=== PATIENT | female | born 1935 | race Caucasian/White ===

== ENCOUNTER 2017-04-10 15:27 | Inpatient (IN) ==
--- NOTE | 2017-04-10 15:48 | Emergency Department Note ---
Disposition Clinical Impression: Thrombocytopenia, Elevated troponin, Hypokalemia, Hyperbilirubinemia Disposition: Admitted As Inpatient Condition: Fair Time of Disposition: 17:36 General Adult HPI - General Chief complaint: ED Recheck/Abnormal Lab/Rx Stated complaint: Low platelets Time Seen by Provider: 04/10/17 15:32 Source: EMS Mode of arrival: EMS Limitations: altered mental status Nursing Notes Reviewed: Yes Vital Signs Reviewed: Yes - History of Present Illness HPI Narrative: 81-year-old female with Alzheimer's presenting from [facility] via EMS for chief complaint of thrombocytopenia. Patient has significant past medical history of breast cancer 10 years ago. She has never had thrombocytopenia in the past. Son is the power of defense attorney and I spoke with him at length. Patient is a DNRCC. He would not like any invasive therapies although he would like the patient to be transfused for thrombocytopenia and admitted for possible noninvasive workup. Patient denies any symptoms at this time. She states she is in no pain. Patient is unable to provide any history. The majority of the history is provided by the son and EMS documentation. Pain Scale: 0 - Related Data Home Medications Medication Instructions Recorded Confirmed Anastrozole [Arimidex] 1 mg PO DAILY 09/16/15 04/10/17 Atorvastatin [Lipitor] 40 mg PO HS 09/16/15 04/10/17 Clopidogrel [Plavix] 75 mg PO DAILY 09/16/15 04/10/17 Duloxetine HCl [Cymbalta] 60 mg PO DAILY 09/16/15 04/10/17 Furosemide [Lasix] 20 mg PO DAILY 09/16/15 04/10/17 Isosorbide MONOnitrate (24 HR) 30 mg PO DAILY 09/16/15 04/10/17 [Imdur] Nitroglycerin [Nitrostat] 0.4 mg SL Q5M PRN 09/16/15 04/10/17 Ranolazine [Ranexa] 500 mg PO BID 09/16/15 04/10/17 Chloraseptic [place] [Chloraseptic] 1 spray MM Q1H PRN 02/26/17 04/10/17 Cholecalciferol (Vitamin D3) 1,000 unit PO DAILY 02/26/17 04/10/17 [Vitamin D] LORazepam [Ativan] 0.5 mg PO HS 02/26/17 04/10/17 Magnesium Hydroxide [Milk of 30 ml PO DAILY PRN 02/26/17 04/10/17 Magnesia] Metoprolol Succinate 25 mg PO DAILY 02/26/17 04/10/17 Tramadol HCl [Ultram] 50 mg PO Q6H PRN 02/26/17 04/10/17 Acetaminophen [Non-Aspirin] 650 mg PO Q6H PRN 03/13/17 04/10/17 Calcium Carbonate [Calcium] 600 mg PO DAILY 04/10/17 04/10/17 Docusate [Colace] 100 mg PO BID 04/10/17 04/10/17 Donepezil HCl [Aricept] 5 mg PO HS 04/10/17 04/10/17 Potassium Chloride [K-Tab ER] 20 meq PO BID 04/10/17 04/10/17 Allergies Allergy/AdvReac Type Severity Reaction Status Date / Time aspirin [ASA] Allergy Swelling Verified 03/13/17 15:48 of Lip/Tongue/Throat codeine Allergy Anaphylaxis Verified 03/13/17 15:48 iodine Allergy Anaphylaxis Verified 03/13/17 15:48 Limitations: ROS unobtainable due to patients medical condition Past Medical History - Past Medical History Attestation: Yes The following information was validated with the patient. Medical history: Reports: cancer, coronary artery disease, myocardial infarction Surgical history: Reports: other Psychiatric history: Reports: no psych history - Social History Smoking Status: Never smoker Smokeless Tobacco Status: No Alcohol use: Reports: none Drug use: Reports: none Physical Exam - General Limitations: altered mental status General appearance: alert, in no apparent distress - Head Head exam: atraumatic, normocephalic, normal inspection - Eye Eye exam: Present: normal appearance. Absent: scleral icterus, conjunctival injection - Chest Chest inspection: Present: normal inspection, symmetric chest wall rise. Absent : tenderness, rash - Respiratory Respiratory exam: Present: normal lung sounds bilaterally. Absent: respiratory distress, wheezes - Cardiovascular Cardiovascular exam: Present: normal rhythm, tachycardia - Abdominal Exam Abdominal exam: Present: soft, Non-Tender. Absent: distention, guarding, rebound - Extremities Exam Extremities exam: Present: full ROM, other (Petechiae noted on the bilateral lower extremities. Mostly on the medial surface of the right knee.) - Neurological Exam Neurological exam: Present: alert (to self only) - Skin Skin exam: Present: warm. Absent: cyanosis Course Course Narrative: 81-year-old female presenting to the emergency Department chief complaint of thrombocytopenia. After an extensive discussion with the patient's power of defense attorney they have decided to perform basic lab workup including CBC, CMP, PTINR , PTT. depending on the platelet levels be well transfuse as needed. Patient is alert only to self. Son who is the power of defense attorney is at bedside. Patient is slightly tachycardic in the low 100s but vital signs otherwise are stable. Disposition most likely admission but pending results. - Reevaluation(s) Reevaluation #1: Platelets at 14 at this time. We will transfuse one packet of platelets. I spoke with the freezer person on-call doctor Shimon who agrees to see the patient while she is admitted. He believes the best thing for the patient is to be transfused and admitted for further workup. He agrees not to completely any invasive workup including bone marrow biopsy. I also spoke with the palliative care team and Dr. Wells who agrees to see the patient tomorrow as well for possible palliative care. Patient also has an elevated troponin of 0.14. Due to her platelet level we are unable to provide any anticoagulation or aspirin at this time. Patient denies any chest pain. Potassium is also decreased at 2.9. We will provide the patient with oral potassium at this time. We will plan to admit the patient at this time for further workup of her thrombocytopenia. I spoke with the accepting hospitalist Dr. Moses who agrees to see the patient on the floor. Patient is still alert only to self and still tachycardic in the low 100s in the room. Other vital signs are within normal limits. We will admit the patient at this time. Time: 17:34 Vital Signs Temperature 98.2 F 04/10/17 15:33 Pulse Rate 104 04/10/17 15:33 Respiratory Rate 16 04/10/17 15:33 Blood Pressure 150/88 04/10/17 15:33 O2 Sat by Pulse Oximetry 93 04/10/17 15:33 Temperature 98.2 F 04/10/17 15:33 Pulse Rate 103 04/10/17 17:35 Respiratory Rate 16 04/10/17 17:35 Blood Pressure 138/91 04/10/17 17:35 O2 Sat by Pulse Oximetry 91 12/05/17 17:35 Oxygen Delivery Oxygen Delivery Room Air Medical Decision Making - Lab Data Lab results reviewed: Yes I reviewed the patient's lab results. Result diagrams: 04/10/17 16:03 04/10/17 16:03 Lab Results 04/10/17 04/10/17 04/10/17 Range/Units 16:03 16:03 16:03 WBC 10.7 (4.3-11.1) K/mcL RBC 3.59 L (3.82-4.97) M/mcL Hgb 12.5 (11.5-15.4) g/dL Hct 35.0 L (35.3-44.9) % MCV 97.5 (83.0-100.0) fL MCH 34.8 H (28.0-33.3) pg MCHC 35.7 H (31.6-35.5) g/dL RDW 14.2 (11.5-14.5) % Plt Count 14 L* (140-400) K/mcL MPV 13.0 H (9.4-12.4) fL Immature Gran % 4.5 H (0-4) % Seg Neutrophils % 82.4 % Lymphocytes % 8.0 % Monocytes % 4.7 % Eosinophils % 0.1 % Basophils % 0.3 % Neutrophils # 8.8 (1.6-8.9) K/mcL Lymphocytes # 0.9 (0.6-4.6) K/mcL Monocytes # 0.5 (0.0-1.3) K/mcL Eosinophils # 0.0 (0.0-0.6) K/mcL Basophils # 0.0 (0.0-0.2) K/mcL Nucleated RBCs/100 WBC 1.0 H (0) /100 WBC Immature Plt Fraction 12.7 H (1.1-6.1) % PT 12.3 H (9.4-12.1) Seconds INR 1.1 APTT 23.2 L (26.0-36.0) Seconds Sodium 142 (136-145) mEq/L Potassium 2.9 L (3.5-4.5) mEq/L Chloride 97 L (98-109) mEq/L Carbon Dioxide 36 H (19-29) mEq/L BUN 18 (7-20) mg/dL Creatinine 0.79 (0.57-1.11) mg/dL Est GFR ( Amer) > 60 (> 60) Est GFR (Non-Af Amer) > 60 (> 60) BUN/Creatinine Ratio 23 (6-26) Glucose 200 H (70-99) mg/dL Calculated Osmolality 302 H (280-300) Calcium 9.2 (8.6-10.8) mg/dL Total Bilirubin 1.4 H (0.2-1.2) mg/dL AST 90 H (5-34) Units/L ALT 69 H (0-55) Units/L Alkaline Phosphatase 124 (38-126) Units/L Troponin I (0-0.03) ng/mL Serum Total Protein 5.3 L (6.0-8.3) g/dL Albumin 2.8 L (3.5-5.0) g/dL Globulin 2.5 (2.4-3.5) g/dL Albumin/Globulin Ratio 1.1 (1.1-2.2) 04/10/17 Range/Units 16:03 WBC (4.3-11.1) K/mcL RBC (3.82-4.97) M/mcL Hgb (11.5-15.4) g/dL Hct (35.3-44.9) % MCV (83.0-100.0) fL MCH (28.0-33.3) pg MCHC (31.6-35.5) g/dL RDW (11.5-14.5) % Plt Count (140-400) K/mcL MPV (9.4-12.4) fL Immature Gran % (0-4) % Seg Neutrophils % % Lymphocytes % % Monocytes % % Eosinophils % % Basophils % % Neutrophils # (1.6-8.9) K/mcL Lymphocytes # (0.6-4.6) K/mcL Monocytes # (0.0-1.3) K/mcL Eosinophils # (0.0-0.6) K/mcL Basophils # (0.0-0.2) K/mcL Nucleated RBCs/100 WBC (0) /100 WBC Immature Plt Fraction (1.1-6.1) % PT (9.4-12.1) Seconds INR APTT (26.0-36.0) Seconds Sodium (136-145) mEq/L Potassium (3.5-4.5) mEq/L Chloride (98-109) mEq/L Carbon Dioxide (19-29) mEq/L BUN (7-20) mg/dL Creatinine (0.57-1.11) mg/dL Est GFR ( Amer) (> 60) Est GFR (Non-Af Amer) (> 60) BUN/Creatinine Ratio (6-26) Glucose (70-99) mg/dL Calculated Osmolality (280-300) Calcium (8.6-10.8) mg/dL Total Bilirubin (0.2-1.2) mg/dL AST (5-34) Units/L ALT (0-55) Units/L Alkaline Phosphatase (38-126) Units/L Troponin I 0.17 H* (0-0.03) ng/mL Serum Total Protein (6.0-8.3) g/dL Albumin (3.5-5.0) g/dL Globulin (2.4-3.5) g/dL Albumin/Globulin Ratio (1.1-2.2) Attestation Statement - Attestation Attestation: I examined this patient and my medical decision-making was reviewed with the Resident Physician, Dr. Saunders. I agree with the documented findings, disposition and treatment plan as described except to the extent set forth below. Patient is a 81-year-old elderly white female with a history of advanced dementia who resides in an extended care facility and is currently on hospice and DNR CC only. Son and [id number] are with the patient at bedside and she was sent here due to abnormal labs from the extended care facility showing a platelet count of 14 as well as new onset of rash located in patchy areas on the lower extremities. She has had no change in her mental status she is resting comfortably and when awakened quite pleasant and smiling and interactive. She does not have a fever, the daughter does mention that over the weekend she was having some shortness of breath and cough and they did give her an IM injection of antibiotics and that she has been doing better since that time. Patient has a significant cardiac history as well and remote CABG. The family restates that they do not want anything invasive or any extreme measures taken for her as she is Comfort Care only. Her appetite has been decreasing and she currently is on thickened liquids for intake. I agree with patient's physical exam findings as documented. Vital signs are stable. We did obtain blood work for a lab evaluation and her platelet count has continued to drop from 20-14. We did speak with hem/onc by phone in regards to the patient's lab results as well as her current CODE STATUS. They recommended that we bring her into a hospice bed and they will be happy to consult on her and we will not proceed with any invasive testing. They recommended we go ahead with the initial transfusion and they will further evaluate possible etiology as well as prevention of ongoing problems cytopenia. Family agrees with this plan. We did speak with hospitalist team as well and they will consult on the patient. Patient will be admitted for further evaluation and management.
[2017-04-10 16:16] LABS: Basophils % 0.3 %; Hemoglobin 12.5 g/dL (11.5-15.4); Mean Corpuscular Volume 97.5 fL (83.0-100.0)
[2017-04-10 16:18] LABS: Eosinophils % 0.1 %; Immature Granulocytes % 4.5 % (0-4); Immature Platelets 12.7 % (1.1-6.1); Lymphocytes # 0.9 K/mcL (0.6-4.6); Mean Corpuscular HGB Conc 35.7 g/dL (31.6-35.5); Mean Corpuscular Hemoglobin 34.8 pg (28.0-33.3); Monocytes # 0.5 K/mcL (0.0-1.3); Monocytes % 4.7 %; Neutrophils # 8.8 K/mcL (1.6-8.9); Red Blood Count 3.59 M/mcL (3.82-4.97); Red Cell Distribution Width 14.2 % (11.5-14.5); Segmented Neutrophils % 82.4 %
[2017-04-10 16:21] LABS: INR 1.1; Prothrombin Time 12.3 Seconds (9.4-12.1)
[2017-04-10 16:23] LABS: Activated Partial Thrombo Time 23.2 Seconds (26.0-36.0)
[2017-04-10 16:36] LABS: Alanine Aminotransferase 69 Units/L (0-55); Albumin 2.8 g/dL (3.5-5.0); Albumin/Globulin Ratio 1.1 (1.1-2.2); Alkaline Phosphatase 124 Units/L (38-126); Aspartate Amino Transferase 90 Units/L (5-34); BUN/Creatinine Ratio 23 (6-26); Bilirubin,Total 1.4 mg/dL (0.2-1.2); Blood Urea Nitrogen 18 mg/dL (7-20); Calcium 9.2 mg/dL (8.6-10.8); Carbon Dioxide 36 mEq/L (19-29); Chloride 97 mEq/L (98-109); Globulin 2.5 g/dL (2.4-3.5); Glucose 200 mg/dL (70-99); Osmolality,Calculated 302 (280-300); Potassium 2.9 mEq/L (3.5-4.5); Sodium 142 mEq/L (136-145); Total Protein 5.3 g/dL (6.0-8.3); eGFR For African Americans > 60 (> 60); eGFR For Non-African Americans > 60 (> 60)
[2017-04-10 16:46] LABS: Platelet Count 14 K/mcL (140-400)
[2017-04-10] MEDS ORDERED: Potassium Chloride Elixir 20 MEQ/15 ML UDC PO ONE (16:46)
[2017-04-10] MEDS ORDERED: *HR* LORazepam 2 MG/ML VIAL IVP ONE (20:35)
[2017-04-10] MEDS ORDERED: 0.9 % Sodium Chloride 250 ML ONE (20:43)
[2017-04-11] MEDS ORDERED: Acetaminophen 325 MG TABLET PO PRN (01:37)
[2017-04-11] MEDS ORDERED: Ondansetron 4 MG/2 ML VIAL IVP PRN (01:37)
[2017-04-11] MEDS ORDERED: Naloxone 0.4 MG/ML INJ IVP PRN (01:37)
[2017-04-11] MEDS ORDERED: Nitroglycerin 0.4 MG TAB.SUBL SL PRN (01:43)
[2017-04-11] MEDS ORDERED: MOM Conc 10 ML UD.LIQ PO PRN (01:43)
[2017-04-11] MEDS ORDERED: Chloraseptic Spray 177 ML BOTTLE MM PRN (01:43)
[2017-04-11] MEDS ORDERED: traMADol 50 MG TABLET PO PRN ×2 (01:43→12:25)
--- NOTE | 2017-04-11 01:49 | Internal Med History&Physical ---
Date of Encounter: 04/11/17 Time of Encounter: 01:47 Assessment and Plan (1) Thrombocytopenia Current visit: Yes Status: Acute New phenomena. No active bleed. Platelet will be transfused. Recheck CBC in the morning. Hematology consulted and Dr. Askew informed. Patient family does not want any invasive procedure especially bone marrow biopsy as documented in chart (2) Elevated troponin Current visit: Yes Status: Acute History of coronary artery disease check echocardiogram and serial enzymes. Due to low platelets antiplatelet agents or anticoagulation cannot be given. She is on beta jourdan. (3) Hypokalemia Current visit: Yes Status: Acute Supplement potassium and recheck it in the morning (4) Hypertension Current visit: Yes Status: Chronic Entry home medication daily monitoring Qualifiers: Hypertension type: essential hypertension Qualified Code(s): I10 - Essential (primary) hypertension Internal Medicine - H&P: HPI Chief complaint: Thrombocytopenia Admitted From: Long-term Nursing Facility Plans for Post Hospital Care: Transfer [facility] History of present illness: Ms. Caro is a 81 year old female history of breast cancer coronary artery disease status post CABG and stents, hypertension, dyslipidemia, CVA bilateral lower extremity edema. Patient is DNR CC and resides at a local fpc. She was sent in due to low platelet count and apparently this is a new phenomena. Her platelet count was only 14,000. Except for bilateral lower extremity petechiae no other hemorrhage noted. Cholesterol the patient is confused but according to patient can tell her her name and able to communicate with her. Unfortunately due to agitation before I could see she has been given Ativan and now she is sleeping. With some effort she is a still arousable and moving all extremities. Troponins are elevated but apparently no history of chest pain. She has history of coronary artery disease in the past Past Med Surg Social Fam HX - Past Medical History Medical history: cancer, coronary artery disease, CVA, dementia, GERD, hyperlipidemia, hypertension, myocardial infarction, other Psychiatric history: anxiety, depression - Past Surgical History Surgical History: coronary bypass (CABG), other - Social History Smoking Status: Never smoker Smokeless Tobacco Status: No Alcohol use: none Drug use: none - Family History Mother Living Status: Hx Family Cardiac Disorders: Yes ([place]) Father Living Status: Hx Family Cardiac Disorders: Yes ([place]) Brother Living Status: Hx Family Cardiac Disorders: Yes ([place]) Internal Medicine - H&P: Meds Anastrozole [Arimidex] 1 mg PO DAILY 09/16/15 [History] Atorvastatin [Lipitor] 40 mg PO HS 09/16/15 [History] Clopidogrel [Plavix] 75 mg PO DAILY 09/16/15 [History] Duloxetine HCl [Cymbalta] 60 mg PO DAILY 09/16/15 [History] Furosemide [Lasix] 20 mg PO DAILY 09/16/15 [History] Isosorbide MONOnitrate (24 HR) [Imdur] 30 mg PO DAILY 09/16/15 [History] Nitroglycerin [Nitrostat] 0.4 mg SL Q5M PRN 09/16/15 [History] Ranolazine [Ranexa] 500 mg PO BID 09/16/15 [History] Chloraseptic [place] [Chloraseptic] 1 spray MM Q1H PRN 02/26/17 [History] Cholecalciferol (Vitamin D3) [Vitamin D] 1,000 unit PO DAILY 02/26/17 [History] LORazepam [Ativan] 0.5 mg PO HS 02/26/17 [History] Magnesium Hydroxide [Milk of Magnesia] 30 ml PO DAILY PRN 02/26/17 [History] Metoprolol Succinate 25 mg PO DAILY 02/26/17 [History] Tramadol HCl [Ultram] 50 mg PO Q6H PRN 02/26/17 [History] Acetaminophen [Non-Aspirin] 650 mg PO Q6H PRN 03/13/17 [History] Calcium Carbonate [Calcium] 600 mg PO DAILY 04/10/17 [History] Docusate [Colace] 100 mg PO BID 04/10/17 [History] Donepezil HCl [Aricept] 5 mg PO HS 04/10/17 [History] Potassium Chloride [K-Tab ER] 20 meq PO BID 04/10/17 [History] 3 Allergy/AdvReac Type Severity Reaction Status Date / Time aspirin [ASA] Allergy Swelling Verified 03/13/17 15:48 of Lip/Tongue/Throat codeine Allergy Anaphylaxis Verified 03/13/17 15:48 iodine Allergy Anaphylaxis Verified 03/13/17 15:48 ROS unobtainable: due to mental status, other All Systems PM: A 10-system review of systems was performed and is negative for pertinent findings except as documented above in the HPI. - Constitutional Vitals: Temp Pulse Resp BP Pulse Ox 96.0 F L 103 14 164/76 93 04/10/17 23:27 04/10/17 23:27 04/10/17 23:27 04/10/17 23:27 04/10/17 23:27 - Head Head exam: Present: atraumatic, normocephalic - Eye Eye exam: Present: PERRL, conjuntiva pink, sclera anicteric Pupils: Present: PERRL - Neck Neck exam general surgery: Present: supple, trachea midline. Absent: lymphadenopathy - Respiratory Respiratory exam: Present: CTAB. Absent: accessory muscle use, rales, rhonchi, wheezes - Cardiovascular Cardiovascular exam: Present: RRR, +S1, +S2. Absent: diastolic murmur, gallop, rubs, systolic murmur - GI/Abdominal GI/Abdominal exam: Present: normal bowel sounds, soft, no peritoneal signs. Absent: distended, tenderness - Extremities Exam Extremities exam: Present: warm, radial pulses palpable and symmetrical. Absent : calf tenderness, cyanotic, pedal edema - Neurological Exam Neurological exam: Present: no focal deficits. Absent: pronater drift, facial droop, speech deficit Additional comments: Patient is arousable moving all extremities and does not cooperate much - Skin Skin exam: Present: dry, intact Internal Med - H&P Results - Labs CBC & Chem 7: 04/10/17 16:03 04/10/17 16:03
[2017-04-11] MEDS: 0.9 % Sodium Chloride 1,000 ML IVC SCH ×2 (02:18→22:54)
[2017-04-11 03:08] LABS: Eosinophils % 0.1 %; Immature Granulocytes % 5.2 % (0-4); Red Blood Count 3.52 M/mcL (3.82-4.97)
[2017-04-11 03:10] LABS: Basophils # 0.1 K/mcL (0.0-0.2); Basophils % 0.4 %; Hematocrit 34.9 % (35.3-44.9); Hemoglobin 12.2 g/dL (11.5-15.4); Immature Platelets 3.9 % (1.1-6.1); Lymphocytes # 1.1 K/mcL (0.6-4.6); Lymphocytes % 8.5 %; Mean Corpuscular Hemoglobin 34.7 pg (28.0-33.3); Mean Corpuscular Volume 99.1 fL (83.0-100.0); Mean Platelet Volume 10.3 fL (9.4-12.4); Monocytes # 0.6 K/mcL (0.0-1.3); Monocytes % 4.6 %; Nucleated Red Blood Cells 1.1 /100 WBC (0); Red Cell Distribution Width 14.5 % (11.5-14.5); Segmented Neutrophils % 81.2 %
[2017-04-11 03:17] LABS: Neutrophils # 10.6 K/mcL (1.6-8.9); Platelet Count 73 K/mcL (140-400)
[2017-04-11 03:21] LABS: BUN/Creatinine Ratio 28 (6-26); Blood Urea Nitrogen 21 mg/dL (7-20); Calcium 9.2 mg/dL (8.6-10.8); Carbon Dioxide 33 mEq/L (19-29); Chloride 99 mEq/L (98-109); Glucose 173 mg/dL (70-99); Osmolality,Calculated 307 (280-300); Potassium 3.7 mEq/L (3.5-4.5); Sodium 145 mEq/L (136-145); eGFR For African Americans > 60 (> 60); eGFR For Non-African Americans > 60 (> 60)
--- NOTE | 2017-04-11 08:46 | Palliative - Consult Note ---
<Dennys Wheeler - Last Filed: 04/11/17 09:39> Date of Encounter: 04/11/17 Time of Encounter: 07:30 - Assessment and Plan (1) Goals of care, counseling/discussion Current Visit: Yes Status: Acute Assessment and plan: Spoke with son/legal guardian Manuel Drake ([phone]). He states that he will bring documentation of guardianship, as our records from 2014 are outdated. He indicates that he only wants treatments and testing that will make the patient more comfortable and nothing that will be "a consistent thing." He does seem to want to move in the direction of hospice with [facility]. (2) Thrombocytopenia Current Visit: Yes Status: Acute Assessment and plan: Improved since transfusion with 1 unit of platelets Given patient status and guardian's wishes, the patient could probably be spared further workup. Palliative-CN HPI - Data of Consult Consult date: 04/11/17 Requesting Physician: Mariano Ayon MD Primary Care Provider: Jerrell Mandel MD - Consult Narrative Reason for consult: Hospice/DNR CC History of present illness: Ms. Caro is a 81 year old female who presented from chaperone care with [facility]. She was found to have new thrombocytopenia, with platelet count of 14 ,000, and was sent to the emergency room. Her only sign/symptom was petechiae on her legs bilaterally. The patient received 1 unit of platelets and her count increased to 71,000. The patient's past medical history is significant for dementia, breast cancer, CAD s/p CABG and stents, hypertension, and dyslipidemia. She is under the guardianship of her son, Manuel. The son states that a bone scan approximately 1 month ago showed areas suspicious for metastatic disease, but it was decided that they would not investigate this further. The alf recently noted that the patient was having increased difficulty swallowing. The son states that they would not pursue a feeding tube, should it become necessary. The nurse practitioner with [facility] has told the family in the past that she would evaluate the patient for hospice care, if she started to decline. CC: Mariano Ayon MD Past Med Surg Social Fam HX - Past Medical History Medical history: cancer, coronary artery disease, CVA, dementia, GERD, hyperlipidemia, hypertension, myocardial infarction, other Psychiatric history: anxiety, depression - Past Surgical History Surgical History: coronary bypass (CABG), other - Social History Smoking Status: Never smoker Smokeless Tobacco Status: No Alcohol use: none Drug use: none - Family History Mother Living Status: Hx Family Cardiac Disorders: Yes (ME) Father Living Status: Hx Family Cardiac Disorders: Yes (ME) Brother Living Status: Hx Family Cardiac Disorders: Yes (ME) Medications and Allergies Anastrozole [Arimidex] 1 mg PO DAILY 09/16/15 [History] Atorvastatin [Lipitor] 40 mg PO HS 09/16/15 [History] Clopidogrel [Plavix] 75 mg PO DAILY 09/16/15 [History] Duloxetine HCl [Cymbalta] 60 mg PO DAILY 09/16/15 [History] Furosemide [Lasix] 20 mg PO DAILY 09/16/15 [History] Isosorbide MONOnitrate (24 HR) [Imdur] 30 mg PO DAILY 09/16/15 [History] Nitroglycerin [Nitrostat] 0.4 mg SL Q5M PRN 09/16/15 [History] Ranolazine [Ranexa] 500 mg PO BID 09/16/15 [History] Chloraseptic [place] [Chloraseptic] 1 spray MM Q1H PRN 02/26/17 [History] Cholecalciferol (Vitamin D3) [Vitamin D] 1,000 unit PO DAILY 02/26/17 [History] LORazepam [Ativan] 0.5 mg PO HS 02/26/17 [History] Magnesium Hydroxide [Milk of Magnesia] 30 ml PO DAILY PRN 02/26/17 [History] Metoprolol Succinate 25 mg PO DAILY 02/26/17 [History] Tramadol HCl [Ultram] 50 mg PO Q6H PRN 02/26/17 [History] Acetaminophen [Non-Aspirin] 650 mg PO Q6H PRN 03/13/17 [History] Calcium Carbonate [Calcium] 600 mg PO DAILY 04/10/17 [History] Docusate [Colace] 100 mg PO BID 04/10/17 [History] Donepezil HCl [Aricept] 5 mg PO HS 04/10/17 [History] Potassium Chloride [K-Tab ER] 20 meq PO BID 04/10/17 [History] 3 Allergy/AdvReac Type Severity Reaction Status Date / Time aspirin [ASA] Allergy Swelling Verified 03/13/17 15:48 of Lip/Tongue/Throat codeine Allergy Anaphylaxis Verified 03/13/17 15:48 iodine Allergy Anaphylaxis Verified 03/13/17 15:48 ROS unobtainable: due to mental status Palliative Care-Exam - Constitutional Vitals: Temp Pulse Resp BP Pulse Ox 98.3 F 113 14 175/91 92 04/11/17 07:52 04/11/17 07:52 04/11/17 07:52 04/11/17 07:52 04/11/17 07:52 General appearance: Present: thin Exam: not cooperative with exam - Head Head Exam: Present: atraumatic, normal inspection, normocephalic - ENT ENT exam: Present: mucous membranes moist - Respiratory Respiratory exam: Present: CTAB - Cardiovascular Cardiovascular exam: Present: RRR, +S1, +S2 - GI/Abdominal Exam GI/Abdominal exam: Present: normal bowel sounds, soft. Absent: tenderness - Extremities Exam Additional comments: Petechiae noted on LEs bilaterally - Psychiatric Additional comments: somnolent, responds sparingly to questions and commands - Skin Skin exam: Present: petechiae (LEs) Internal Medicine - CN: Reslt - Labs CBC & Chem 7: 04/11/17 02:55 04/11/17 02:55 Labs: Short CBC 04/11/17 Range/Units 02:55 WBC 13.0 H (4.3-11.1) K/mcL Hgb 12.2 (11.5-15.4) g/dL Hct 34.9 L (35.3-44.9) % Plt Count 73 L D (140-400) K/mcL Neutrophils # 10.6 H (1.6-8.9) K/mcL BMP 04/11/17 02:55 Sodium 145 Potassium 3.7 Chloride 99 Carbon Dioxide 33 H BUN 21 H Creatinine 0.74 Glucose 173 H Calcium 9.2 Cardiac Enzymes 04/11/17 Range/Units 02:55 Troponin I 0.16 H* (0-0.03) ng/mL - ABG Interpretation ABG results: PT/INR, D-dimer PT 12.3 Seconds (9.4-12.1) H 04/10/17 16:03 Consult Discharge Plan - Plan Referrals: Jerrell Mandel MD [Primary Care Provider] - Palliative Quality Palliative Quality: Screen for Code Status: Yes, Screen for Goals of Care: Yes, Screen for Pain: Yes, If Pain Regimen Started, Initiate Bowel Regimen: NA, Screen for Nausea/Vomitting: Yes <Bin Bobo - Last Filed: 04/11/17 11:17> Date of Encounter: 04/11/17 Palliative-CN HPI - Data of Consult Requesting Physician: Mariano Ayon MD Primary Care Provider: Jerrell Mandel MD - Consult Narrative History of present illness: Ms. Caro is a 81 year old female CC: Mariano Ayon MD Palliative Care-Exam - Constitutional Vitals: Temp Pulse Resp BP Pulse Ox 98.3 F 113 14 175/91 92 04/11/17 07:52 04/11/17 07:52 04/11/17 07:52 04/11/17 07:52 04/11/17 07:52 Internal Medicine - CN: Reslt - Labs CBC & Chem 7: 04/11/17 02:55 04/11/17 02:55 Labs: Short CBC 04/11/17 Range/Units 02:55 WBC 13.0 H (4.3-11.1) K/mcL Hgb 12.2 (11.5-15.4) g/dL Hct 34.9 L (35.3-44.9) % Plt Count 73 L D (140-400) K/mcL Neutrophils # 10.6 H (1.6-8.9) K/mcL BMP 04/11/17 02:55 Sodium 145 Potassium 3.7 Chloride 99 Carbon Dioxide 33 H BUN 21 H Creatinine 0.74 Glucose 173 H Calcium 9.2 Cardiac Enzymes 04/11/17 Range/Units 02:55 Troponin I 0.16 H* (0-0.03) ng/mL - ABG Interpretation ABG results: PT/INR, D-dimer PT 12.3 Seconds (9.4-12.1) H 04/10/17 16:03 - Impressions Impressions Echocardiogram 04/11/17 01:54 Impressions: LVEF 50-55%. Not all LV segments were well visualized, but overall function appears normal. Normal LV chamber size and wall thickness. Atypical septal motion consistent with post-operative status. Indeterminate diastolic function. Normal right ventricular structure and function. Mild tricuspid regurgitation. Moderate pulmonary hypertension. Estimated RVSP is 54 mmHg. Findings: Study Quality * Technically sub-optimal due to poor echocardiographic windows. ECG Findings * Normal sinus rhythm. Left Ventricle * LVEF 50-55%. Not all LV segments were well visualized, but overall function appears normal. * Normal LV chamber size and wall thickness. * Atypical septal motion consistent with post-operative status. * Indeterminate diastolic function. Right Ventricle * Normal right ventricular structure and function. Left Atrium * Mildly dilated left atrium. Right Atrium * Normal right atrial size. Interatrial Septum * Interatrial septum not well evaluated. Aortic Valve * Aortic valve not well visualized. * Grossly, mildly calcified aortic valve leaflets. * No aortic regurgitation. * No aortic stenosis. Mitral Valve * Mild mitral annular calcification. * Mildly thickened leaflets. * No mitral stenosis . Trace mitral regurgitation. Tricuspid Valve * Normal tricuspid valve structure. * Mild tricuspid regurgitation. * Moderate pulmonary hypertension. * Estimated RVSP is 54 mmHg. * Estimated RA pressure is 5 mmHg. Pulmonic Valve * Pulmonic valve not well visualized. Aorta * Normally sized aortic root. Pericardium * The pericardium appears normal. IVC * The IVC is not well evaluated. Pulmonary Artery * Pulmonary artery not well visualized. - Attending Attestation I examined this patient and my medical decision-making was reviewed with the Resident Physician. I agree with the documented findings, disposition and treatment plan as described except to the extent set forth below.
[2017-04-11] MEDS ORDERED: Furosemide 20 MG TABLET PO SCH (09:00)
[2017-04-11] MEDS: Ranolazine 500 MG TAB.ER.12H PO SCH ×2 (10:54→22:53)
[2017-04-11] MEDS: Metoprolol XL (24 HR) Succ 25 MG TAB.ER.24H PO SCH (10:54)
[2017-04-11] MEDS: Cholecalciferol (D-3) 1,000 UNIT TABLET PO SCH (10:55)
[2017-04-11] MEDS: Isosorbide MONOnitrate (24 HR) 30 MG TAB.ER.24H PO SCH (10:55)
[2017-04-11 13:35] LABS: Bilirubin,Urine Negative (Negative); Blood,Urine Negative (Negative); Clarity,Urine Clear (Clear); Color,Urine Dark Yellow (Yellow); Glucose,Urine (UA) Normal (Normal); Ketones,Urine Negative (Negative); Leukocyte Esterase,Urine Negative (Negative); Nitrite,Urine Negative (Negative); PH,Urine 7.5 pH Units (5.0-8.0); Protein,Urine Trace mg/dL (Neg-Trace); Specific Gravity,Urine 1.017 (1.010-1.025); Urobilinogen,Urine Normal (Normal)
[2017-04-11 13:36] LABS: Bacteria,Urine None Seen per hpf (None-Few); Hyaline Casts,Urine None Seen per lpf (None-Few); RBC,Urine 0-3 per hpf (0-3); Squamous Epithelial Cell,Urine Moderate per lpf (None-Few); WBC,Urine 0-3 per hpf (0-3)
--- NOTE | 2017-04-11 15:12 | Oncology Inp Consult Note ---
<Anjel Nayak Jr - Last Filed: 04/11/17 16:25> Date of Encounter: 04/11/17 Time of Encounter: 15:37 Assessment and Plan (1) Thrombocytopenia Status: Acute Assessment and plan: This is a 81-year-old female with acute thrombocytopenia. Looking at past records, there is no history of previous thrombocytopenia or ITP. Patient is DNR CC, with severe dementia at local extended care facility. Family wishes no bone marrow biopsies or aggressive workup, according to medical record on admission and palliative care team. Last seen at [facility] 03/13/[address] Tal Hatch for remote history right breast cancer in 2006. On 03/13/17 platelets 136, then 14 on 04/10/17. Previous records show normal platelet counts prior to 03/13/17. Differential diagnosis for thrombocytopenia are autoimmune causes, current infections, and certain medicines like Lasix and antibiotics, NSAIDs, and Zantac. She takes Lasix 20 mg daily abdominal medication list. This has been discontinued Also, on Plavix daily, and CXR today shows probable CHF. Plavix on hold. Anastrozole for her breast cancer has rare side effect for thrombocytopenia, but it was stopped at end of February 2017. Etiology unclear at this point. Our plan is to treat conservatively. Now she has been transfused 1 pack of platelets with current PLT count at 73, we will see if her platelet counts hold overnight. I did speak with Dr. Bobo with our palliative care team. Patient's family has been offered hospice at [facility]. Patient continues DNR CC. Dr Durbin will assess patient, and agrees with conservative measures and observation of her counts. (2) Breast cancer metastasized to bone Status: Acute Assessment and plan: Remote history of breast cancer NOS, diagnosed in 2006. By report it sounds as though she had locally advanced disease. She is status post mastectomy, adjuvant chemotherapy and radiotherapy. She has been on anastrozole since that time for approximately 9 years. This was discontinued 03/06/17. Last seen by Dr Tal Hatch at [facility] on 03/13/17. Whole body bone scan on 03/06/17 showed suspicious areas of multifocal abnormal uptake involving bilateral ribs, left parasternal region,and calvarium is suspicious for metastatic disease. Given a recent history of trauma, some of this uptake could relate to fractures. A focus of moderate uptake within the cervical spine could be degenerative or metastatic. Patient with metastatic breast cancer, but no aggressive treatment has been sought by family based on bone scan results, most recently, due to functional status decline and comorbidities. She is scheduled to see Dr Hatch again in 3 months. Qualifiers: Laterality: right Qualified Code(s): C50.911 - Malignant neoplasm of unspecified site of right female breast; C79.51 - Secondary malignant neoplasm of bone; C79.51 - Secondary malignant neoplasm of bone; C79.51 - Secondary malignant neoplasm of bone; C79.51 - Secondary malignant neoplasm of bone - Data of Consult Patient: known to practice within the last 3 years Consult date: 04/11/17 Requesting Physician: Mariano Ayon MD Primary Care Provider: Jerrell Mandel MD - Consult Narrative Reason for consult: Acute thrombocytopenia History of present illness: Ms. Caro is a 81 year old female with a remote history of breast cancer in 2006 , with coronary artery disease status post CABG and stents, hypertension, dyslipidemia, CVA bilateral lower extremity edema. Whole body bone scan at [facility] on 03/06/17 showed areas suspicious for metastatic disease, but it was decided that they would not investigate this further. She had taken anastrozole for 7 years, and ended in late February 2017 as last dose. She follows Dr Tal Hatch at [facility], last visit 03/13/17. Patient is DNR CC and resides at at [facility]. She was seen at [facility] with easy bruising/petechiae. Labs were drawn, and her platelet count was only 14,000. Except for bilateral lower extremity petechiae no other hemorrhage noted. The patient is often confused with dementia, but can answer her name and basic questions. Reviewing medical records, no history of low platelets, ITP or autoimmune diseases. Hematology consulted for evaluation. Past Med Surg Social Fam HX - Past Medical History Medical history: cancer, coronary artery disease, CVA, dementia, GERD, hyperlipidemia, hypertension, myocardial infarction, other Psychiatric history: anxiety, depression - Past Surgical History Surgical History: coronary bypass (CABG), other - Social History Smoking Status: Never smoker Smokeless Tobacco Status: No Alcohol use: none Drug use: none - Family History Mother Living Status: Hx Family Cardiac Disorders: Yes (CT) Father Living Status: Hx Family Cardiac Disorders: Yes (CT) Brother Living Status: Hx Family Cardiac Disorders: Yes (CT) Medications and Allergies Anastrozole [Arimidex] 1 mg PO DAILY 09/16/15 [History] Atorvastatin [Lipitor] 40 mg PO HS 09/16/15 [History] Clopidogrel [Plavix] 75 mg PO DAILY 09/16/15 [History] Duloxetine HCl [Cymbalta] 60 mg PO DAILY 09/16/15 [History] Furosemide [Lasix] 20 mg PO DAILY 09/16/15 [History] Isosorbide MONOnitrate (24 HR) [Imdur] 30 mg PO DAILY 09/16/15 [History] Nitroglycerin [Nitrostat] 0.4 mg SL Q5M PRN 09/16/15 [History] Ranolazine [Ranexa] 500 mg PO BID 09/16/15 [History] Chloraseptic [place] [Chloraseptic] 1 spray MM Q1H PRN 02/26/17 [History] Cholecalciferol (Vitamin D3) [Vitamin D] 1,000 unit PO DAILY 02/26/17 [History] LORazepam [Ativan] 0.5 mg PO HS 02/26/17 [History] Magnesium Hydroxide [Milk of Magnesia] 30 ml PO DAILY PRN 02/26/17 [History] Metoprolol Succinate 25 mg PO DAILY 02/26/17 [History] Tramadol HCl [Ultram] 50 mg PO Q6H PRN 02/26/17 [History] Acetaminophen [Non-Aspirin] 650 mg PO Q6H PRN 03/13/17 [History] Calcium Carbonate [Calcium] 600 mg PO DAILY 04/10/17 [History] Docusate [Colace] 100 mg PO BID 04/10/17 [History] Donepezil HCl [Aricept] 5 mg PO HS 04/10/17 [History] Potassium Chloride [K-Tab ER] 20 meq PO BID 04/10/17 [History] 3 Allergy/AdvReac Type Severity Reaction Status Date / Time aspirin [ASA] Allergy Swelling Verified 03/13/17 15:48 of Lip/Tongue/Throat codeine Allergy Anaphylaxis Verified 03/13/17 15:48 iodine Allergy Anaphylaxis Verified 03/13/17 15:48 ROS unobtainable: due to mental status Oncology - Exam - Constitutional Vitals: Temp Pulse Resp BP Pulse Ox 98 F 97 16 164/81 97 04/11/17 14:28 04/11/17 14:28 04/11/17 14:28 04/11/17 14:28 04/11/17 14:28 General appearance: no acute distress - Eye Eye exam: Present: normal appearance, PERRL - ENT ENT exam: Present: mucous membranes moist - Neck Neck exam: Present: full ROM, normal inspection - Respiratory Respiratory exam: Present: CTAB - Cardiovascular Cardiovascular exam: Present: RRR - Extremities Exam Extremities exam: Present: full ROM - Neurological Exam Neurological exam: Present: alert - Psychiatric Psychiatric exam: Present: normal affect - Skin Skin exam: Present: dry, warm Oncology - Results Labs: Short CBC 04/11/17 Range/Units 02:55 WBC 13.0 H (4.3-11.1) K/mcL Hgb 12.2 (11.5-15.4) g/dL Hct 34.9 L (35.3-44.9) % Plt Count 73 L D (140-400) K/mcL Neutrophils # 10.6 H (1.6-8.9) K/mcL BMP 04/11/17 02:55 Sodium 145 Potassium 3.7 Chloride 99 Carbon Dioxide 33 H BUN 21 H Creatinine 0.74 Glucose 173 H Calcium 9.2 Cardiac Enzymes 04/11/17 04/11/17 Range/Units 02:55 14:07 Troponin I 0.16 H* 0.16 H* (0-0.03) ng/mL Urine 04/11/17 Range/Units 13:19 Urine Color Dark Yellow (Yellow) Urine Clarity Clear (Clear) Urine pH 7.5 (5.0-8.0) pH Units Ur Specific [place] 1.017 (1.010-1.025) Urine Protein Trace (Neg-Trace) mg/dL Urine Glucose (UA) Normal (Normal) mg/dL Consult Discharge Plan - Plan Referrals: Jerrell Mandel MD [Primary Care Provider] - <RamakrishnaCielo bruner - Last Filed: 04/12/17 09:21> Date of Encounter: 04/12/17 - Data of Consult Requesting Physician: Mariano Ayon MD Primary Care Provider: Jerrell Mandel MD - Consult Narrative History of present illness: Ms. Caro is a 81 year old female Oncology - Exam - Constitutional Vitals: Temp Pulse Resp BP Pulse Ox 98.1 F 100 16 155/87 98 04/11/17 16:48 04/11/17 16:48 04/11/17 16:48 04/11/17 16:48 04/11/17 16:48 Oncology - Results Labs: Short CBC 04/11/17 Range/Units 02:55 WBC 13.0 H (4.3-11.1) K/mcL Hgb 12.2 (11.5-15.4) g/dL Hct 34.9 L (35.3-44.9) % Plt Count 73 L D (140-400) K/mcL Neutrophils # 10.6 H (1.6-8.9) K/mcL BMP 04/11/17 02:55 Sodium 145 Potassium 3.7 Chloride 99 Carbon Dioxide 33 H BUN 21 H Creatinine 0.74 Glucose 173 H Calcium 9.2 Cardiac Enzymes 04/11/17 04/11/17 Range/Units 02:55 14:07 Troponin I 0.16 H* 0.16 H* (0-0.03) ng/mL Urine 04/11/17 Range/Units 13:19 Urine Color Dark Yellow (Yellow) Urine Clarity Clear (Clear) Urine pH 7.5 (5.0-8.0) pH Units Ur Specific [place] 1.017 (1.010-1.025) Urine Protein Trace (Neg-Trace) mg/dL Urine Glucose (UA) Normal (Normal) mg/dL - Attending Attestation 1. Locally advanced right breast cancer diagnosis 2006. Currently she follows up with Dr. Tal Hatch. She was on anastrozole for several years and stopped on 03/06/2017 a bone scan in February 2017 showed multifocal degenerative disease no conclusive evidence for bone metastasis 2. Acute thrombocytopenia symptomatic with bruising and petechia bilateral lower extremity which was the reason for admission. Platelet count improved from 14,000 to around 70,000 with platelet transfusion. Rest of CBC unremarkable. Differential diagnoses include ITP. She is DNR CC and family does not want any aggressive measures. Platelet count drops again in May consider trial of steroids. 3. Echocardiogram showed ejection fraction 50-55%. Mild pulmonary hypertension
--- NOTE | 2017-04-11 16:06 | Internal Med Progress Note ---
Date of Encounter: 04/11/17 Time of Encounter: 09:00 - Assessment and plan (1) Physical deconditioning Current Visit: Yes Status: Acute Assessment and plan: Patient has general weakness and physical deconditioning in the last 3 months. Family would like to pursue comfort care only. We will continue supportive treatment. (2) DVT prophylaxis Current Visit: No Status: Acute Assessment and plan: EPCD. No heparin because of thrombocytopenia (3) Thrombocytopenia Current Visit: Yes Status: Acute Assessment and plan: Etiology is undetermined. Family does not want aggressive workup. Improved after platelet transfusion. No signs of active bleeding. Oncology consult appreciated. (4) Elevated troponin Current Visit: Yes Status: Acute Assessment and plan: Adynamic elevated troponin. Probably due to demand ischemia. No further workup as patient family want to pursue hospice (5) Hypokalemia Current Visit: Yes Status: Acute Assessment and plan: Improved after potassium supplement (6) Goals of care, counseling/discussion Current Visit: Yes Status: Acute Assessment and plan: Palliative care on case. Will consider hospice (7) Breast cancer metastasized to bone Current Visit: Yes Status: Acute Assessment and plan: Patient's family clearly state that pt does not want any chemotherapy or radiation therapy. We will continue supportive and symptomatic treatment Qualifiers: Laterality: right Qualified Code(s): C50.911 - Malignant neoplasm of unspecified site of right female breast; C79.51 - Secondary malignant neoplasm of bone; C79.51 - Secondary malignant neoplasm of bone; C79.51 - Secondary malignant neoplasm of bone; C79.51 - Secondary malignant neoplasm of bone - Time Spent With Patient 25 - 35 minutes - Subjective Interval history: Patient was seen and examined. Very weak. No signs of active bleeding. Patient has dementia, cannot communicate. I have discussed with the patient's [id number], per family, patient has generally deconditioning in the recent 3 months, per intake and body weight loss. Highly suspected metastatic breast cancer per oncology. Family wants to pursue hospice care. Will continue supportive treatment. Palliative and oncology consult appreciated. No aggressive workup at this point. - Constitutional Vitals: Temp Pulse Resp BP Pulse Ox 98 F 97 16 164/81 97 04/11/17 14:28 04/11/17 14:28 04/11/17 14:28 04/11/17 14:28 04/11/17 14:28 General appearance: Present: A&O X 0, no acute distress - Head Head exam: Present: atraumatic, normocephalic - Eye Eye exam: Present: PERRL, conjuntiva pink, sclera anicteric Pupils: Present: PERRL - Neck Neck exam general surgery: Present: supple, trachea midline. Absent: lymphadenopathy - Respiratory Respiratory exam: Present: CTAB. Absent: accessory muscle use, rales, rhonchi, wheezes - Cardiovascular Cardiovascular exam: Present: RRR, +S1, +S2. Absent: diastolic murmur, gallop, rubs, systolic murmur - GI/Abdominal GI/Abdominal exam: Present: normal bowel sounds, soft, no peritoneal signs. Absent: distended, tenderness - Extremities Exam Extremities exam: Present: warm, radial pulses palpable and symmetrical. Absent : calf tenderness, cyanotic, pedal edema - Neurological Exam Neurological exam: Present: CN II-XII intact, oriented X3, no focal deficits. Absent: pronater drift, facial droop, speech deficit - Skin Skin exam: Present: dry, intact Internal Medicine: Result - Labs CBC & Chem 7: 04/11/17 02:55 04/11/17 02:55 Labs: Short CBC 04/11/17 Range/Units 02:55 WBC 13.0 H (4.3-11.1) K/mcL Hgb 12.2 (11.5-15.4) g/dL Hct 34.9 L (35.3-44.9) % Plt Count 73 L D (140-400) K/mcL Neutrophils # 10.6 H (1.6-8.9) K/mcL BMP 04/11/17 02:55 Sodium 145 Potassium 3.7 Chloride 99 Carbon Dioxide 33 H BUN 21 H Creatinine 0.74 Glucose 173 H Calcium 9.2 Cardiac Enzymes 04/11/17 04/11/17 Range/Units 02:55 14:07 Troponin I 0.16 H* 0.16 H* (0-0.03) ng/mL Urine 04/11/17 Range/Units 13:19 Urine Color Dark Yellow (Yellow) Urine Clarity Clear (Clear) Urine pH 7.5 (5.0-8.0) pH Units Ur Specific [place] 1.017 (1.010-1.025) Urine Protein Trace (Neg-Trace) mg/dL Urine Glucose (UA) Normal (Normal) mg/dL - ABG Interpretation ABG results: PT/INR, D-dimer PT 12.3 Seconds (9.4-12.1) H 04/10/17 16:03 - Impressions Impressions Echocardiogram 04/11/17 01:54 Impressions: LVEF 50-55%. Not all LV segments were well visualized, but overall function appears normal. Normal LV chamber size and wall thickness. Atypical septal motion consistent with post-operative status. Indeterminate diastolic function. Normal right ventricular structure and function. Mild tricuspid regurgitation. Moderate pulmonary hypertension. Estimated RVSP is 54 mmHg. Findings: Study Quality * Technically sub-optimal due to poor echocardiographic windows. ECG Findings * Normal sinus rhythm. Left Ventricle * LVEF 50-55%. Not all LV segments were well visualized, but overall function appears normal. * Normal LV chamber size and wall thickness. * Atypical septal motion consistent with post-operative status. * Indeterminate diastolic function. Right Ventricle * Normal right ventricular structure and function. Left Atrium * Mildly dilated left atrium. Right Atrium * Normal right atrial size. Interatrial Septum * Interatrial septum not well evaluated. Aortic Valve * Aortic valve not well visualized. * Grossly, mildly calcified aortic valve leaflets. * No aortic regurgitation. * No aortic stenosis. Mitral Valve * Mild mitral annular calcification. * Mildly thickened leaflets. * No mitral stenosis . Trace mitral regurgitation. Tricuspid Valve * Normal tricuspid valve structure. * Mild tricuspid regurgitation. * Moderate pulmonary hypertension. * Estimated RVSP is 54 mmHg. * Estimated RA pressure is 5 mmHg. Pulmonic Valve * Pulmonic valve not well visualized. Aorta * Normally sized aortic root. Pericardium * The pericardium appears normal. IVC * The IVC is not well evaluated. Pulmonary Artery * Pulmonary artery not well visualized. Chest X-Ray 04/11/17 11:30 IMPRESSION: Findings compatible with CHF with interstitial edema and left pleural effusion D/ / Huseyin Edmond MD / Huseyin Edmond MD Interpreting Provider: Huseyin Edmond MD - VTE Documentation of Mechanical Device: Graduated compression elastic hosiery Consult Discharge Plan - Plan Referrals: Jerrell Mandel MD [Primary Care Provider] -
--- NOTE | 2017-04-11 19:18 | Electrocardiograph Report ---
[place] [id number] Test Date: 2017-04-10 Pat Name: Neli Caro Department: 104 Room: 3A36 Gender: F Parts Representative: TIFFANIE : 1935 Requested By: Kathryn Saunders Order Number: [id number] Reading MD: Chuy Parra DO Measurements Intervals [place] Rate: 105 P: 88 NE: 106 QRS: 59 QRSD: 87 T: 41 QT: 296 QTc: 357 Interpretive Statements SINUS TACHYCARDIA WITH SHORT NE INTERVAL WITH OCCASIONAL SUPRAVENTRICULAR PREMATURE COMPLEXES NONSPECIFIC ST & T-WAVE ABNORMALITY ABNORMAL RHYTHM ECG Electronically Signed On 04-11-2017 19:16:42 EST by Chuy Parra DO
[2017-04-12 04:09] LABS: Basophils # 0.1 K/mcL (0.0-0.2); Basophils % 0.4 %; Hematocrit 35.2 % (35.3-44.9); Hemoglobin 11.8 g/dL (11.5-15.4); Immature Granulocytes % 4.7 % (0-4); Lymphocytes % 8.6 %; Mean Corpuscular HGB Conc 33.5 g/dL (31.6-35.5); Mean Corpuscular Hemoglobin 34.1 pg (28.0-33.3); Mean Corpuscular Volume 101.7 fL (83.0-100.0); Mean Platelet Volume 10.8 fL (9.4-12.4); Monocytes # 0.5 K/mcL (0.0-1.3); Monocytes % 4.4 %; Neutrophils # 9.7 K/mcL (1.6-8.9); Nucleated Red Blood Cells 1.4 /100 WBC (0); Red Blood Count 3.46 M/mcL (3.82-4.97); Red Cell Distribution Width 14.5 % (11.5-14.5); Segmented Neutrophils % 81.9 %
[2017-04-12 04:12] LABS: Platelet Count 43 K/mcL (140-400)
[2017-04-12] MEDS: Isosorbide MONOnitrate (24 HR) 30 MG TAB.ER.24H PO SCH (09:12)
[2017-04-12] MEDS: Cholecalciferol (D-3) 1,000 UNIT TABLET PO SCH (09:12)
[2017-04-12] MEDS: Metoprolol XL (24 HR) Succ 25 MG TAB.ER.24H PO SCH (09:12)
--- NOTE | 2017-04-12 10:27 | Palliative Progress Note ---
<Dennys Wheeler - Last Filed: 04/12/17 10:24> Date of Encounter: 04/12/17 Time of Encounter: 08:00 - Assessment and plan (1) Goals of care, counseling/discussion Current Visit: Yes Status: Acute Assessment and plan: When patient is ready for discharge, she can be discharged back to [place]. Nurse practitioner there has, in the past, told the family that she could be evaluated for hospice whenever the family felt she was ready. She will likely qualify at this point. CODE STATUS is DNR CC (2) Thrombocytopenia Current Visit: Yes Status: Acute Assessment and plan: Platelets have dropped again since last transfusion. Family does not want workup, nor ongoing treatment. This would likely make her hospice-eligible. - Time Spent With Patient Total time spent is greater than 50% in coordination of care (as documented) at patient's floor/unit and/or counseling patient: - Subjective Interval history: No interval change. Patient continues to be somnolent and mostly noncooperative with examination and questioning. - Constitutional Vitals: Abnormal lab results WBC 11.8 K/mcL (4.3-11.1) H 04/12/17 03:40 RBC 3.46 M/mcL (3.82-4.97) L 04/12/17 03:40 Hct 35.2 % (35.3-44.9) L 04/12/17 03:40 MCV 101.7 fL (83.0-100.0) H 04/12/17 03:40 MCH 34.1 pg (28.0-33.3) H 04/12/17 03:40 Plt Count 43 K/mcL (140-400) L 04/12/17 03:40 Immature Gran % 4.7 % (0-4) H 04/12/17 03:40 Neutrophils # 9.7 K/mcL (1.6-8.9) H 04/12/17 03:40 Nucleated RBCs/100 WBC 1.4 /100 WBC (0) H 04/12/17 03:40 PT 12.3 Seconds (9.4-12.1) H 04/10/17 16:03 APTT 23.2 Seconds (26.0-36.0) L 04/10/17 16:03 Carbon Dioxide 33 mEq/L (19-29) H 04/11/17 02:55 BUN 21 mg/dL (7-20) H 04/11/17 02:55 BUN/Creatinine Ratio 28 (6-26) H 04/11/17 02:55 Glucose 173 mg/dL (70-99) H 04/11/17 02:55 POC Glucose 187 (58-89) H 04/12/17 05:35 Calculated Osmolality 307 (280-300) H 04/11/17 02:55 Total Bilirubin 1.4 mg/dL (0.2-1.2) H 04/10/17 16:03 AST 90 Units/L (5-34) H 04/10/17 16:03 ALT 69 Units/L (0-55) H 04/10/17 16:03 Troponin I 0.16 ng/mL (0-0.03) H* 04/11/17 14:07 Serum Total Protein 5.3 g/dL (6.0-8.3) L 04/10/17 16:03 Albumin 2.8 g/dL (3.5-5.0) L 04/10/17 16:03 Ur Squamous Epith Cells Moderate per lpf (None-Few) H 04/11/17 13:19 General appearance: Present: no acute distress, thin - Head Head exam: Present: atraumatic, normal inspection, normocephalic - Respiratory Respiratory exam: Present: CTAB. Absent: respiratory distress - Cardiovascular Cardiovascular exam: Present: RRR, +S1, +S2 - GI/Abdominal GI/Abdominal exam: Present: normal bowel sounds, soft. Absent: tenderness - Neurological Exam Neurological exam: Present: alert Additional comments: Oriented to self only - Skin Skin exam: Present: dry, warm Palliative Quality Palliative Quality: Screen for Code Status: Yes, Screen for Goals of Care: Yes, Screen for Pain: Yes, If Pain Regimen Started, Initiate Bowel Regimen: NA, Screen for Nausea/Vomitting: Yes - Labs CBC & Chem 7: 04/12/17 03:40 04/11/17 02:55 Labs: Laboratory Results - last 24 hr 04/11/17 04/11/17 04/11/17 13:19 14:07 20:33 WBC RBC Hgb Hct MCV MCH MCHC RDW Plt Count MPV Immature Gran % Seg Neutrophils % Lymphocytes % Monocytes % Eosinophils % Basophils % Neutrophils # Lymphocytes # Monocytes # Eosinophils # Basophils # Nucleated RBCs/100 WBC Smear Path Review See Below POC Glucose Troponin I 0.16 H* Urine Color Dark Yellow Urine Clarity Clear Urine pH 7.5 Ur Specific [place] 1.017 Urine Protein Trace Urine Glucose (UA) Normal Urine Ketones Negative Urine Blood Negative Urine Nitrite Negative Urine Bilirubin Negative Urine Urobilinogen Normal Ur Leukocyte Esterase Negative Urine Microscopic RBC 0-3 Urine Microscopic WBC 0-3 Ur Squamous Epith Cells Moderate H Urine Bacteria None Seen Hyaline Casts None Seen Ur Culture Indicated? NO 04/11/17 04/12/17 04/12/17 23:50 03:40 05:35 WBC 11.8 H RBC 3.46 L Hgb 11.8 Hct 35.2 L MCV 101.7 H MCH 34.1 H MCHC 33.5 RDW 14.5 Plt Count 43 L MPV 10.8 Immature Gran % 4.7 H Seg Neutrophils % 81.9 Lymphocytes % 8.6 Monocytes % 4.4 Eosinophils % 0.0 Basophils % 0.4 Neutrophils # 9.7 H Lymphocytes # 1.0 Monocytes # 0.5 Eosinophils # 0.0 Basophils # 0.1 Nucleated RBCs/100 WBC 1.4 H Smear Path Review POC Glucose 173 H 187 H Troponin I Urine Color Urine Clarity Urine pH Ur Specific [place] Urine Protein Urine Glucose (UA) Urine Ketones Urine Blood Urine Nitrite Urine Bilirubin Urine Urobilinogen Ur Leukocyte Esterase Urine Microscopic RBC Urine Microscopic WBC Ur Squamous Epith Cells Urine Bacteria Hyaline Casts Ur Culture Indicated? - Impressions Impressions Echocardiogram 04/11/17 01:54 Impressions: LVEF 50-55%. Not all LV segments were well visualized, but overall function appears normal. Normal LV chamber size and wall thickness. Atypical septal motion consistent with post-operative status. Indeterminate diastolic function. Normal right ventricular structure and function. Mild tricuspid regurgitation. Moderate pulmonary hypertension. Estimated RVSP is 54 mmHg. Findings: Study Quality * Technically sub-optimal due to poor echocardiographic windows. ECG Findings * Normal sinus rhythm. Left Ventricle * LVEF 50-55%. Not all LV segments were well visualized, but overall function appears normal. * Normal LV chamber size and wall thickness. * Atypical septal motion consistent with post-operative status. * Indeterminate diastolic function. Right Ventricle * Normal right ventricular structure and function. Left Atrium * Mildly dilated left atrium. Right Atrium * Normal right atrial size. Interatrial Septum * Interatrial septum not well evaluated. Aortic Valve * Aortic valve not well visualized. * Grossly, mildly calcified aortic valve leaflets. * No aortic regurgitation. * No aortic stenosis. Mitral Valve * Mild mitral annular calcification. * Mildly thickened leaflets. * No mitral stenosis . Trace mitral regurgitation. Tricuspid Valve * Normal tricuspid valve structure. * Mild tricuspid regurgitation. * Moderate pulmonary hypertension. * Estimated RVSP is 54 mmHg. * Estimated RA pressure is 5 mmHg. Pulmonic Valve * Pulmonic valve not well visualized. Aorta * Normally sized aortic root. Pericardium * The pericardium appears normal. IVC * The IVC is not well evaluated. Pulmonary Artery * Pulmonary artery not well visualized. Chest X-Ray 04/11/17 11:30 IMPRESSION: Findings compatible with CHF with interstitial edema and left pleural effusion D/ / Huseyin Edmond MD / Huseyin Edmond MD Interpreting Provider: Huseyin Edmond MD - ABG Interpretation ABG results: PT/INR, D-dimer PT 12.3 Seconds (9.4-12.1) H 04/10/17 16:03 Consult Discharge Plan - Plan Referrals: Jerrell Mandel MD [Primary Care Provider] - <Bin Bobo - Last Filed: 04/12/17 10:47> Date of Encounter: 04/12/17 - Time Spent With Patient Total time spent is greater than 50% in coordination of care (as documented) at patient's floor/unit and/or counseling patient: - Constitutional Vitals: Abnormal lab results WBC 11.8 K/mcL (4.3-11.1) H 04/12/17 03:40 RBC 3.46 M/mcL (3.82-4.97) L 04/12/17 03:40 Hct 35.2 % (35.3-44.9) L 04/12/17 03:40 MCV 101.7 fL (83.0-100.0) H 04/12/17 03:40 MCH 34.1 pg (28.0-33.3) H 04/12/17 03:40 Plt Count 43 K/mcL (140-400) L 04/12/17 03:40 Immature Gran % 4.7 % (0-4) H 04/12/17 03:40 Neutrophils # 9.7 K/mcL (1.6-8.9) H 04/12/17 03:40 Nucleated RBCs/100 WBC 1.4 /100 WBC (0) H 04/12/17 03:40 PT 12.3 Seconds (9.4-12.1) H 04/10/17 16:03 APTT 23.2 Seconds (26.0-36.0) L 04/10/17 16:03 Carbon Dioxide 33 mEq/L (19-29) H 04/11/17 02:55 BUN 21 mg/dL (7-20) H 04/11/17 02:55 BUN/Creatinine Ratio 28 (6-26) H 04/11/17 02:55 Glucose 173 mg/dL (70-99) H 04/11/17 02:55 POC Glucose 187 (58-89) H 04/12/17 05:35 Calculated Osmolality 307 (280-300) H 04/11/17 02:55 Total Bilirubin 1.4 mg/dL (0.2-1.2) H 04/10/17 16:03 AST 90 Units/L (5-34) H 04/10/17 16:03 ALT 69 Units/L (0-55) H 04/10/17 16:03 Troponin I 0.16 ng/mL (0-0.03) H* 04/11/17 14:07 Serum Total Protein 5.3 g/dL (6.0-8.3) L 04/10/17 16:03 Albumin 2.8 g/dL (3.5-5.0) L 04/10/17 16:03 Ur Squamous Epith Cells Moderate per lpf (None-Few) H 04/11/17 13:19 - Attending Attestation I examined this patient and my medical decision-making was reviewed with the Resident Physician. I agree with the documented findings, disposition and treatment plan as described except to the extent set forth below. - Labs CBC & Chem 7: 04/12/17 03:40 04/11/17 02:55 Labs: Laboratory Results - last 24 hr 04/11/17 04/11/17 04/11/17 13:19 14:07 20:33 WBC RBC Hgb Hct MCV MCH MCHC RDW Plt Count MPV Immature Gran % Seg Neutrophils % Lymphocytes % Monocytes % Eosinophils % Basophils % Neutrophils # Lymphocytes # Monocytes # Eosinophils # Basophils # Nucleated RBCs/100 WBC Smear Path Review See Below POC Glucose Troponin I 0.16 H* Urine Color Dark Yellow Urine Clarity Clear Urine pH 7.5 Ur Specific [place] 1.017 Urine Protein Trace Urine Glucose (UA) Normal Urine Ketones Negative Urine Blood Negative Urine Nitrite Negative Urine Bilirubin Negative Urine Urobilinogen Normal Ur Leukocyte Esterase Negative Urine Microscopic RBC 0-3 Urine Microscopic WBC 0-3 Ur Squamous Epith Cells Moderate H Urine Bacteria None Seen Hyaline Casts None Seen Ur Culture Indicated? NO 04/11/17 04/12/17 04/12/17 23:50 03:40 05:35 WBC 11.8 H RBC 3.46 L Hgb 11.8 Hct 35.2 L MCV 101.7 H MCH 34.1 H MCHC 33.5 RDW 14.5 Plt Count 43 L MPV 10.8 Immature Gran % 4.7 H Seg Neutrophils % 81.9 Lymphocytes % 8.6 Monocytes % 4.4 Eosinophils % 0.0 Basophils % 0.4 Neutrophils # 9.7 H Lymphocytes # 1.0 Monocytes # 0.5 Eosinophils # 0.0 Basophils # 0.1 Nucleated RBCs/100 WBC 1.4 H Smear Path Review POC Glucose 173 H 187 H Troponin I Urine Color Urine Clarity Urine pH Ur Specific [place] Urine Protein Urine Glucose (UA) Urine Ketones Urine Blood Urine Nitrite Urine Bilirubin Urine Urobilinogen Ur Leukocyte Esterase Urine Microscopic RBC Urine Microscopic WBC Ur Squamous Epith Cells Urine Bacteria Hyaline Casts Ur Culture Indicated? - Impressions Impressions Echocardiogram 04/11/17 01:54 Impressions: LVEF 50-55%. Not all LV segments were well visualized, but overall function appears normal. Normal LV chamber size and wall thickness. Atypical septal motion consistent with post-operative status. Indeterminate diastolic function. Normal right ventricular structure and function. Mild tricuspid regurgitation. Moderate pulmonary hypertension. Estimated RVSP is 54 mmHg. Findings: Study Quality * Technically sub-optimal due to poor echocardiographic windows. ECG Findings * Normal sinus rhythm. Left Ventricle * LVEF 50-55%. Not all LV segments were well visualized, but overall function appears normal. * Normal LV chamber size and wall thickness. * Atypical septal motion consistent with post-operative status. * Indeterminate diastolic function. Right Ventricle * Normal right ventricular structure and function. Left Atrium * Mildly dilated left atrium. Right Atrium * Normal right atrial size. Interatrial Septum * Interatrial septum not well evaluated. Aortic Valve * Aortic valve not well visualized. * Grossly, mildly calcified aortic valve leaflets. * No aortic regurgitation. * No aortic stenosis. Mitral Valve * Mild mitral annular calcification. * Mildly thickened leaflets. * No mitral stenosis . Trace mitral regurgitation. Tricuspid Valve * Normal tricuspid valve structure. * Mild tricuspid regurgitation. * Moderate pulmonary hypertension. * Estimated RVSP is 54 mmHg. * Estimated RA pressure is 5 mmHg. Pulmonic Valve * Pulmonic valve not well visualized. Aorta * Normally sized aortic root. Pericardium * The pericardium appears normal. IVC * The IVC is not well evaluated. Pulmonary Artery * Pulmonary artery not well visualized. Chest X-Ray 04/11/17 11:30
[2017-04-12] MEDS: Ranolazine 500 MG TAB.ER.12H PO SCH ×2 (14:02→22:25)
--- NOTE | 2017-04-12 14:14 | Oncology Inp Progress Note ---
<Anjel Nayak Jr - Last Filed: 04/12/17 14:09> Date of Encounter: 04/12/17 Time of Encounter: 14:09 (1) Thrombocytopenia Current Visit: Yes Status: Acute Assessment and plan: This is a 81-year-old female with acute thrombocytopenia. Looking at past records, there is no history of previous thrombocytopenia or ITP. 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 Patient's family not wanting extensive work up or interventions like dependent transfusions. Our recommendation is to start on prednisone 60mg PO daily if platelet count <20 ,000. She could continue oral steroids and taper at her ECF as an outpatient, and follow up with Dr Hatch as an outpatient, since she is established with him at [facility]. Patient's family has been offered hospice at [place]. Patient continues DNR CC. I communicated with Dr Bobo on PC team with current plan recommendation. He has been the lead speaking with the POA We will continue to follow along. (2) Breast cancer metastasized to bone Current Visit: Yes Status: Acute Assessment and plan: Remote history of breast cancer NOS, diagnosed in 2006. By report it sounds as though she had locally advanced disease. She is status post mastectomy, adjuvant chemotherapy and radiotherapy. She has been on anastrozole since that time for approximately 9 years. This was discontinued 03/06/17. Last seen by Dr Tal Hatch at [facility] on 03/13/17. Whole body bone scan on 03/06/17 showed suspicious areas of multifocal abnormal uptake involving bilateral ribs, left parasternal region,and calvarium is suspicious for metastatic disease. Given a recent history of trauma, some of this uptake could relate to fractures. A focus of moderate uptake within the cervical spine could be degenerative or metastatic. Patient with metastatic breast cancer, but no aggressive treatment has been sought by family based on bone scan results, most recently, due to functional status decline and comorbidities. She is scheduled to see Dr Hatch again in 3 months. Qualifiers: Laterality: right Qualified Code(s): C50.911 - Malignant neoplasm of unspecified site of right female breast; C79.51 - Secondary malignant neoplasm of bone; C79.51 - Secondary malignant neoplasm of bone; C79.51 - Secondary malignant neoplasm of bone; C79.51 - Secondary malignant neoplasm of bone (3) Acute idiopathic thrombocytopenic purpura Current Visit: Yes Status: Suspected Oncology: Subj Interval history: Patient resting comfortably today, no family at bedside - Constitutional Vitals: Vital Signs Temp Pulse Resp BP Pulse Ox 04/12/17 10:40 97.7 F 108 16 136/84 89 04/12/17 07:35 98.8 F 98 16 155/75 89 04/12/17 04:28 97.7 F 110 15 150/51 91 04/12/17 02:34 97.5 F L 107 15 165/88 98 04/11/17 23:49 97.1 F L 62 15 159/104 93 04/11/17 19:10 98.2 F 111 16 168/93 97 04/11/17 16:48 98.1 F 100 16 155/87 98 04/11/17 14:28 98 F 97 16 164/81 97 Intake and Output 04/11/17 04/12/17 04/12/17 23:59 07:59 15:59 Intake Total 400 / 400 0 / 0 0 / 0 Output Total 0 / 0 0 / 0 Balance 400 / 400 0 / 0 0 / 0 Intake: IV Fluids 400 / 400 0.9 % Sodium Chloride 1,000 ML 400 / 400 @ 50 mls/hr IVC .Q20H JEANETTE Rx#: [id number] Oral 0 / 0 0 / 0 0 / 0 Output: Urine 0 / 0 0 / 0 Other: Meal npo Percent of Meal Consumed 0% # Voids 1 # Urine Diapers 1 Weight 53.8 kg Blood Glucose* 173 187 186 Patient Weight 04/12/17 23:59 Weight 53.8 kg General appearance: no acute distress - Head Head exam: Present: atraumatic, normal inspection - Eye Eye exam: Present: PERRL - ENT ENT exam: Present: mucous membranes moist - Neck Neck exam: Present: full ROM, normal inspection - Respiratory Respiratory exam: Present: CTAB - Cardiovascular Cardiovascular exam: Present: RRR - Extremities Exam Extremities exam: Present: full ROM, normal inspection - Neurological Exam Neurological exam: Present: alert - Psychiatric Psychiatric exam: Present: normal affect, normal mood - Skin Skin exam: Present: dry, warm Oncology: Obj Data - Labs CBC & Chem 7: 04/12/17 03:40 04/11/17 02:55 Labs: Laboratory Results - last 24 hr 04/11/17 04/11/17 04/11/17 14:07 20:33 23:50 WBC RBC Hgb Hct MCV MCH MCHC RDW Plt Count MPV Immature Gran % Seg Neutrophils % Lymphocytes % Monocytes % Eosinophils % Basophils % Neutrophils # Lymphocytes # Monocytes # Eosinophils # Basophils # Nucleated RBCs/100 WBC Smear Path Review See Below POC Glucose 173 H Troponin I 0.16 H* 04/12/17 04/12/17 04/12/17 03:40 05:35 11:46 WBC 11.8 H RBC 3.46 L Hgb 11.8 Hct 35.2 L MCV 101.7 H MCH 34.1 H MCHC 33.5 RDW 14.5 Plt Count 43 L MPV 10.8 Immature Gran % 4.7 H Seg Neutrophils % 81.9 Lymphocytes % 8.6 Monocytes % 4.4 Eosinophils % 0.0 Basophils % 0.4 Neutrophils # 9.7 H Lymphocytes # 1.0 Monocytes # 0.5 Eosinophils # 0.0 Basophils # 0.1 Nucleated RBCs/100 WBC 1.4 H Smear Path Review POC Glucose 187 H 186 H Troponin I - ABG Interpretation ABG results: PT/INR, D-dimer PT 12.3 Seconds (9.4-12.1) H 04/10/17 16:03 Consult Discharge Plan - Plan Referrals: Jerrell Mandel MD [Primary Care Provider] - <Cielo Durbin S - Last Filed: 04/13/17 08:58> Date of Encounter: 04/13/17 - Constitutional Vitals: Vital Signs Temp Pulse Resp BP Pulse Ox 04/13/17 07:00 97.0 F L 104 18 168/74 94 04/13/17 03:20 97.7 F 100 18 152/91 93 04/12/17 23:52 98.5 F 112 15 162/83 91 04/12/17 18:52 97.5 F L 107 14 173/97 95 04/12/17 15:26 97.3 F L 96 16 157/72 94 04/12/17 10:40 97.7 F 108 16 136/84 89 Intake and Output 04/12/17 04/13/17 04/13/17 23:59 07:59 15:59 Intake Total 0 / 0 0 / 0 Output Total 0 / 0 Balance 0 / 0 0 / 0 Intake: Oral 0 / 0 0 / 0 Output: Urine 0 / 0 Other: Meal Dinner NPO # Urine Diapers 1 2 Weight 53.4 kg Blood Glucose* 301 Patient Weight 04/13/17 23:59 Weight 53.4 kg Oncology: Obj Data - Labs CBC & Chem 7: 04/13/17 03:57 04/13/17 03:57 Labs: Laboratory Results - last 24 hr 04/11/17 04/12/17 04/12/17 20:33 11:46 17:25 WBC RBC Hgb Hct MCV MCH MCHC RDW Plt Count MPV Immature Gran % Seg Neutrophils % Lymphocytes % Monocytes % Eosinophils % Basophils % Neutrophils # Lymphocytes # Monocytes # Eosinophils # Basophils # Nucleated RBCs/100 WBC Immature Plt Fraction Smear Path Review See Below Sodium Potassium Chloride Carbon Dioxide BUN Creatinine Est GFR ( Amer) Est GFR (Non-Af Amer) BUN/Creatinine Ratio Glucose POC Glucose 186 H 301 H Est Mean Plasma Glucose Hemoglobin A1c Calculated Osmolality Calcium 04/12/17 04/13/17 04/13/17 17:27 03:57 03:57 WBC 9.5 RBC 3.29 L Hgb 11.3 L Hct 33.4 L MCV 101.5 H MCH 34.3 H MCHC 33.8 RDW 14.5 Plt Count 28 L* MPV 11.1 Immature Gran % 5.0 H Seg Neutrophils % 83.7 Lymphocytes % 7.0 Monocytes % 3.9 Eosinophils % 0.1 Basophils % 0.3 Neutrophils # 8.0 Lymphocytes # 0.7 Monocytes # 0.4 Eosinophils # 0.0 Basophils # 0.0 Nucleated RBCs/100 WBC 2.0 H Immature Plt Fraction 6.6 H Smear Path Review Sodium 156 H D Potassium 2.9 L Chloride 108 Carbon Dioxide 33 H BUN 34 H D Creatinine 0.81 Est GFR ( Amer) > 60 Est GFR (Non-Af Amer) > 60 BUN/Creatinine Ratio 42 H Glucose 239 H POC Glucose 314 H Est Mean Plasma Glucose Hemoglobin A1c Calculated Osmolality 337 H Calcium 9.0 04/13/17 03:57 WBC RBC Hgb Hct MCV MCH MCHC RDW Plt Count MPV Immature Gran % Seg Neutrophils % Lymphocytes % Monocytes % Eosinophils % Basophils % Neutrophils # Lymphocytes # Monocytes # Eosinophils # Basophils # Nucleated RBCs/100 WBC Immature Plt Fraction Smear Path Review Sodium Potassium Chloride Carbon Dioxide BUN Creatinine Est GFR ( Amer) Est GFR (Non-Af Amer) BUN/Creatinine Ratio Glucose POC Glucose Est Mean Plasma Glucose 131 Hemoglobin A1c 6.2 H Calculated Osmolality Calcium - ABG Interpretation ABG results: PT/INR, D-dimer PT 12.3 Seconds (9.4-12.1) H 04/10/17 16:03 - Attending Attestation I examined this patient and my medical decision-making was reviewed with the Advanced Practice Nurse. I agree with the documented findings, disposition and treatment plan as described except to the extent set forth below. 1. Acute thrombocytopenia. She did respond to platelet transfusion. But platelets are trending down to 28,000. This could be ITP. Rest of CBC unremarkable. His platelet counts drop below 20,000 would recommend trial of prednisone 40-60 mg daily in divided doses for 10 days then 20 mg once a day for 2 weeks Also macrocytic mild anemia. Possible underlying MDS
--- NOTE | 2017-04-12 15:34 | Internal Med Progress Note ---
Date of Encounter: 04/12/17 Time of Encounter: 10:00 - Assessment and plan (1) Physical deconditioning Current Visit: Yes Status: Acute Assessment and plan: Patient has general weakness and physical deconditioning in the last 3 months. Family would like to pursue comfort care only. We will continue supportive treatment. (2) DVT prophylaxis Current Visit: No Status: Acute Assessment and plan: EPCD. No heparin because of thrombocytopenia (3) Thrombocytopenia Current Visit: Yes Status: Acute Assessment and plan: Etiology is undetermined. Suspect ITP. Family does not want aggressive workup. No signs of active bleeding. Will consider steroid if Plt < 20k per oncology. (4) Elevated troponin Current Visit: Yes Status: Acute Assessment and plan: Adynamic elevated troponin. Probably due to demand ischemia. No further workup as patient family want to pursue hospice (5) Hypokalemia Current Visit: Yes Status: Acute Assessment and plan: Improved after potassium supplement (6) Goals of care, counseling/discussion Current Visit: Yes Status: Acute Assessment and plan: Palliative care on case. Will consider hospice (7) Breast cancer metastasized to bone Current Visit: Yes Status: Acute Assessment and plan: Patient's family clearly state that pt does not want any chemotherapy or radiation therapy. We will continue supportive and symptomatic treatment Qualifiers: Laterality: right Qualified Code(s): C50.911 - Malignant neoplasm of unspecified site of right female breast; C79.51 - Secondary malignant neoplasm of bone; C79.51 - Secondary malignant neoplasm of bone; C79.51 - Secondary malignant neoplasm of bone; C79.51 - Secondary malignant neoplasm of bone - Time Spent With Patient 25 - 35 minutes - Subjective Interval history: Patient was seen and examined. Very weak. Not talking too much. Know her name is Neli. No signs of active bleeding. Platelet drop to 43K, oncology suspect ITP, recommend steroid if platelet < 20k. Will cont closely monitor platelet level. - Constitutional Vitals: Temp Pulse Resp BP Pulse Ox 97.3 F L 96 16 157/72 94 04/12/17 15:26 04/12/17 15:26 04/12/17 15:26 04/12/17 15:26 04/12/17 15:26 General appearance: Present: cachectic, A&O X 0, no acute distress - Head Head exam: Present: atraumatic, normocephalic - Eye Eye exam: Present: PERRL, conjuntiva pink, sclera anicteric Pupils: Present: PERRL - Neck Neck exam general surgery: Present: supple, trachea midline. Absent: lymphadenopathy - Respiratory Respiratory exam: Present: CTAB. Absent: accessory muscle use, rales, rhonchi, wheezes - Cardiovascular Cardiovascular exam: Present: RRR, +S1, +S2. Absent: diastolic murmur, gallop, rubs, systolic murmur - GI/Abdominal GI/Abdominal exam: Present: normal bowel sounds, soft, no peritoneal signs. Absent: distended, tenderness - Extremities Exam Extremities exam: Present: warm, radial pulses palpable and symmetrical. Absent : calf tenderness, cyanotic, pedal edema - Neurological Exam Neurological exam: Present: CN II-XII intact, oriented X3, no focal deficits. Absent: pronater drift, facial droop, speech deficit - Skin Skin exam: Present: dry, intact Internal Medicine: Result - Labs CBC & Chem 7: 04/12/17 03:40 04/11/17 02:55 Labs: Short CBC 04/12/17 Range/Units 03:40 WBC 11.8 H (4.3-11.1) K/mcL Hgb 11.8 (11.5-15.4) g/dL Hct 35.2 L (35.3-44.9) % Plt Count 43 L (140-400) K/mcL Neutrophils # 9.7 H (1.6-8.9) K/mcL - ABG Interpretation ABG results: PT/INR, D-dimer PT 12.3 Seconds (9.4-12.1) H 04/10/17 16:03 - VTE Documentation of Mechanical Device: Graduated compression elastic hosiery Consult Discharge Plan - Plan Referrals: Jerrell Mandel MD [Primary Care Provider] -
[2017-04-13 04:26] LABS: Basophils % 0.3 %; Mean Corpuscular Volume 101.5 fL (83.0-100.0)
[2017-04-13 04:28] LABS: Eosinophils % 0.1 %; Hematocrit 33.4 % (35.3-44.9); Hemoglobin 11.3 g/dL (11.5-15.4); Immature Platelets 6.6 % (1.1-6.1); Lymphocytes # 0.7 K/mcL (0.6-4.6); Mean Corpuscular HGB Conc 33.8 g/dL (31.6-35.5); Mean Corpuscular Hemoglobin 34.3 pg (28.0-33.3); Mean Platelet Volume 11.1 fL (9.4-12.4); Monocytes # 0.4 K/mcL (0.0-1.3); Monocytes % 3.9 %; Red Blood Count 3.29 M/mcL (3.82-4.97); Red Cell Distribution Width 14.5 % (11.5-14.5); Segmented Neutrophils % 83.7 %
[2017-04-13 04:32] LABS: Platelet Count 28 K/mcL (140-400)
[2017-04-13 04:36] LABS: BUN/Creatinine Ratio 42 (6-26); Carbon Dioxide 33 mEq/L (19-29); Chloride 108 mEq/L (98-109); Glucose 239 mg/dL (70-99); Osmolality,Calculated 337 (280-300); Potassium 2.9 mEq/L (3.5-4.5); eGFR For African Americans > 60 (> 60); eGFR For Non-African Americans > 60 (> 60)
[2017-04-13 04:38] LABS: Blood Urea Nitrogen 34 mg/dL (7-20); Sodium 156 mEq/L (136-145)
[2017-04-13 04:52] LABS: Hemoglobin A1C 6.2 %
[2017-04-13] MEDS ORDERED: 0.45 % Sodium Chloride w/KCl 20 MEQ/1,000 ML MLS IVC SCH (07:45)
--- NOTE | 2017-04-13 09:12 | Palliative Progress Note ---
<Dennys Wheeler - Last Filed: 04/13/17 09:10> Date of Encounter: 04/13/17 Time of Encounter: 07:30 - Assessment and plan (1) Goals of care, counseling/discussion Current Visit: Yes Status: Acute Assessment and plan: Spoke with guardian's , as guardian is currently having minor surgical procedure. Will clarify with guardian later this morning that he would be okay with steroid treatment for ITP should platelets drop below 20,000, which is likely. [facility] is meeting the family today around 12:30 and will evaluate the patient. CODE STATUS is DNR CC (2) Thrombocytopenia Current Visit: Yes Status: Acute Assessment and plan: Presumed ITP Will clarify with guardian that he is okay with steroid treatment. - Time Spent With Patient Total time spent is greater than 50% in coordination of care (as documented) at patient's floor/unit and/or counseling patient: - Subjective Interval history: No interval change. Patient continues to be somnolent and mostly noncooperative with examination and questioning. - Constitutional Vitals: Abnormal lab results RBC 3.29 M/mcL (3.82-4.97) L 04/13/17 03:57 Hgb 11.3 g/dL (11.5-15.4) L 04/13/17 03:57 Hct 33.4 % (35.3-44.9) L 04/13/17 03:57 MCV 101.5 fL (83.0-100.0) H 04/13/17 03:57 MCH 34.3 pg (28.0-33.3) H 04/13/17 03:57 Plt Count 28 K/mcL (140-400) L* 04/13/17 03:57 Immature Gran % 5.0 % (0-4) H 04/13/17 03:57 Nucleated RBCs/100 WBC 2.0 /100 WBC (0) H 04/13/17 03:57 Immature Plt Fraction 6.6 % (1.1-6.1) H 04/13/17 03:57 PT 12.3 Seconds (9.4-12.1) H 04/10/17 16:03 APTT 23.2 Seconds (26.0-36.0) L 04/10/17 16:03 Sodium 156 mEq/L (136-145) H D 04/13/17 03:57 Potassium 2.9 mEq/L (3.5-4.5) L 04/13/17 03:57 Carbon Dioxide 33 mEq/L (19-29) H 04/13/17 03:57 BUN 34 mg/dL (7-20) H D 04/13/17 03:57 BUN/Creatinine Ratio 42 (6-26) H 04/13/17 03:57 Glucose 239 mg/dL (70-99) H 04/13/17 03:57 POC Glucose 314 (58-89) H 04/12/17 17:27 Hemoglobin A1c 6.2 % (-5.6) H 04/13/17 03:57 Calculated Osmolality 337 (280-300) H 04/13/17 03:57 Total Bilirubin 1.4 mg/dL (0.2-1.2) H 04/10/17 16:03 AST 90 Units/L (5-34) H 04/10/17 16:03 ALT 69 Units/L (0-55) H 04/10/17 16:03 Troponin I 0.16 ng/mL (0-0.03) H* 04/11/17 14:07 Serum Total Protein 5.3 g/dL (6.0-8.3) L 04/10/17 16:03 Albumin 2.8 g/dL (3.5-5.0) L 04/10/17 16:03 Ur Squamous Epith Cells Moderate per lpf (None-Few) H 04/11/17 13:19 General appearance: Present: no acute distress, thin - Head Head exam: Present: atraumatic, normal inspection, normocephalic - ENT ENT exam: Present: mucous membranes moist - Respiratory Respiratory exam: Present: CTAB. Absent: respiratory distress - Cardiovascular Cardiovascular exam: Present: RRR, +S1, +S2 - GI/Abdominal GI/Abdominal exam: Present: normal bowel sounds, soft. Absent: tenderness - Neurological Exam Neurological exam: Present: alert Additional comments: Oriented to self only - Skin Skin exam: Present: dry, warm Palliative Quality Palliative Quality: Screen for Code Status: Yes, Screen for Goals of Care: Yes, Screen for Pain: Yes, If Pain Regimen Started, Initiate Bowel Regimen: NA, Screen for Nausea/Vomitting: Yes - Labs CBC & Chem 7: 04/13/17 03:57 04/13/17 03:57 Labs: Laboratory Results - last 24 hr 04/11/17 04/12/17 04/12/17 20:33 11:46 17:25 WBC RBC Hgb Hct MCV MCH MCHC RDW Plt Count MPV Immature Gran % Seg Neutrophils % Lymphocytes % Monocytes % Eosinophils % Basophils % Neutrophils # Lymphocytes # Monocytes # Eosinophils # Basophils # Nucleated RBCs/100 WBC Immature Plt Fraction Smear Path Review See Below Sodium Potassium Chloride Carbon Dioxide BUN Creatinine Est GFR ( Amer) Est GFR (Non-Af Amer) BUN/Creatinine Ratio Glucose POC Glucose 186 H 301 H Est Mean Plasma Glucose Hemoglobin A1c Calculated Osmolality Calcium 04/12/17 04/13/17 04/13/17 17:27 03:57 03:57 WBC 9.5 RBC 3.29 L Hgb 11.3 L Hct 33.4 L MCV 101.5 H MCH 34.3 H MCHC 33.8 RDW 14.5 Plt Count 28 L* MPV 11.1 Immature Gran % 5.0 H Seg Neutrophils % 83.7 Lymphocytes % 7.0 Monocytes % 3.9 Eosinophils % 0.1 Basophils % 0.3 Neutrophils # 8.0 Lymphocytes # 0.7 Monocytes # 0.4 Eosinophils # 0.0 Basophils # 0.0 Nucleated RBCs/100 WBC 2.0 H Immature Plt Fraction 6.6 H Smear Path Review Sodium 156 H D Potassium 2.9 L Chloride 108 Carbon Dioxide 33 H BUN 34 H D Creatinine 0.81 Est GFR ( Amer) > 60 Est GFR (Non-Af Amer) > 60 BUN/Creatinine Ratio 42 H Glucose 239 H POC Glucose 314 H Est Mean Plasma Glucose Hemoglobin A1c Calculated Osmolality 337 H Calcium 9.0 04/13/17 03:57 WBC RBC Hgb Hct MCV MCH MCHC RDW Plt Count MPV Immature Gran % Seg Neutrophils % Lymphocytes % Monocytes % Eosinophils % Basophils % Neutrophils # Lymphocytes # Monocytes # Eosinophils # Basophils # Nucleated RBCs/100 WBC Immature Plt Fraction Smear Path Review Sodium Potassium Chloride Carbon Dioxide BUN Creatinine Est GFR ( Amer) Est GFR (Non-Af Amer) BUN/Creatinine Ratio Glucose POC Glucose Est Mean Plasma Glucose 131 Hemoglobin A1c 6.2 H Calculated Osmolality Calcium - ABG Interpretation ABG results: PT/INR, D-dimer PT 12.3 Seconds (9.4-12.1) H 04/10/17 16:03 Consult Discharge Plan - Plan Referrals: Jerrell Mandel MD [Primary Care Provider] - <Bin Bobo - Last Filed: 04/13/17 10:16> Date of Encounter: 04/13/17 - Time Spent With Patient Total time spent is greater than 50% in coordination of care (as documented) at patient's floor/unit and/or counseling patient: - Constitutional Vitals: Abnormal lab results RBC 3.29 M/mcL (3.82-4.97) L 04/13/17 03:57 Hgb 11.3 g/dL (11.5-15.4) L 04/13/17 03:57 Hct 33.4 % (35.3-44.9) L 04/13/17 03:57 MCV 101.5 fL (83.0-100.0) H 04/13/17 03:57 MCH 34.3 pg (28.0-33.3) H 04/13/17 03:57 Plt Count 28 K/mcL (140-400) L* 04/13/17 03:57 Immature Gran % 5.0 % (0-4) H 04/13/17 03:57 Nucleated RBCs/100 WBC 2.0 /100 WBC (0) H 04/13/17 03:57 Immature Plt Fraction 6.6 % (1.1-6.1) H 04/13/17 03:57 PT 12.3 Seconds (9.4-12.1) H 04/10/17 16:03 APTT 23.2 Seconds (26.0-36.0) L 04/10/17 16:03 Sodium 156 mEq/L (136-145) H D 04/13/17 03:57 Potassium 2.9 mEq/L (3.5-4.5) L 04/13/17 03:57 Carbon Dioxide 33 mEq/L (19-29) H 04/13/17 03:57 BUN 34 mg/dL (7-20) H D 04/13/17 03:57 BUN/Creatinine Ratio 42 (6-26) H 04/13/17 03:57 Glucose 239 mg/dL (70-99) H 04/13/17 03:57 POC Glucose 314 (58-89) H 04/12/17 17:27 Hemoglobin A1c 6.2 % (-5.6) H 04/13/17 03:57 Calculated Osmolality 337 (280-300) H 04/13/17 03:57 Total Bilirubin 1.4 mg/dL (0.2-1.2) H 04/10/17 16:03 AST 90 Units/L (5-34) H 04/10/17 16:03 ALT 69 Units/L (0-55) H 04/10/17 16:03 Troponin I 0.16 ng/mL (0-0.03) H* 04/11/17 14:07 Serum Total Protein 5.3 g/dL (6.0-8.3) L 04/10/17 16:03 Albumin 2.8 g/dL (3.5-5.0) L 04/10/17 16:03 Ur Squamous Epith Cells Moderate per lpf (None-Few) H 04/11/17 13:19 - Attending Attestation I examined this patient and my medical decision-making was reviewed with the Resident Physician. I agree with the documented findings, disposition and treatment plan as described except to the extent set forth below. - Labs CBC & Chem 7: 04/13/17 03:57 04/13/17 03:57 Labs: Laboratory Results - last 24 hr 04/12/17 04/12/17 04/12/17 11:46 17:25 17:27 WBC RBC Hgb Hct MCV MCH MCHC RDW Plt Count MPV Immature Gran % Seg Neutrophils % Lymphocytes % Monocytes % Eosinophils % Basophils % Neutrophils # Lymphocytes # Monocytes # Eosinophils # Basophils # Nucleated RBCs/100 WBC Immature Plt Fraction Sodium Potassium Chloride Carbon Dioxide BUN Creatinine Est GFR ( Amer) Est GFR (Non-Af Amer) BUN/Creatinine Ratio Glucose POC Glucose 186 H 301 H 314 H Est Mean Plasma Glucose Hemoglobin A1c Calculated Osmolality Calcium 04/13/17 04/13/17 04/13/17 03:57 03:57 03:57 WBC 9.5 RBC 3.29 L Hgb 11.3 L Hct 33.4 L MCV 101.5 H MCH 34.3 H MCHC 33.8 RDW 14.5 Plt Count 28 L* MPV 11.1 Immature Gran % 5.0 H Seg Neutrophils % 83.7 Lymphocytes % 7.0 Monocytes % 3.9 Eosinophils % 0.1 Basophils % 0.3 Neutrophils # 8.0 Lymphocytes # 0.7 Monocytes # 0.4 Eosinophils # 0.0 Basophils # 0.0 Nucleated RBCs/100 WBC 2.0 H Immature Plt Fraction 6.6 H Sodium 156 H D Potassium 2.9 L Chloride 108 Carbon Dioxide 33 H BUN 34 H D Creatinine 0.81 Est GFR ( Amer) > 60 Est GFR (Non-Af Amer) > 60 BUN/Creatinine Ratio 42 H Glucose 239 H POC Glucose Est Mean Plasma Glucose 131 Hemoglobin A1c 6.2 H Calculated Osmolality 337 H Calcium 9.0 - ABG Interpretation ABG results: PT/INR, D-dimer PT 12.3 Seconds (9.4-12.1) H 04/10/17 16:03
[2017-04-13] MEDS: Cholecalciferol (D-3) 1,000 UNIT TABLET PO SCH (10:42)
[2017-04-13] MEDS: Ranolazine 500 MG TAB.ER.12H PO SCH (10:42)
[2017-04-13 12:37] VITALS: BP 143/75
--- NOTE | 2017-04-13 13:54 | Discharge Summary ---
Date of Encounter: 04/13/17 Time of Encounter: 13:00 - Discharge Diagnosis (1) Physical deconditioning Priority: Primary Status: Acute (2) DVT prophylaxis Priority: Secondary Status: Acute (3) Thrombocytopenia Priority: Primary Status: Acute (4) Elevated troponin Priority: Primary Status: Acute (5) Hypokalemia Priority: Primary Status: Acute (6) Goals of care, counseling/discussion Priority: Primary Status: Acute (7) Breast cancer metastasized to bone Priority: Secondary Status: Acute Qualifiers: Laterality: right Qualified Code(s): C50.911 - Malignant neoplasm of unspecified site of right female breast; C79.51 - Secondary malignant neoplasm of bone; C79.51 - Secondary malignant neoplasm of bone; C79.51 - Secondary malignant neoplasm of bone; C79.51 - Secondary malignant neoplasm of bone - Discharge Medications Home Medications: Atorvastatin [Lipitor] 40 mg PO HS 09/16/15 [History] Clopidogrel [Plavix] 75 mg PO DAILY 09/16/15 [History] Duloxetine HCl [Cymbalta] 60 mg PO DAILY 09/16/15 [History] Isosorbide MONOnitrate (24 HR) [Imdur] 30 mg PO DAILY 09/16/15 [History] Nitroglycerin [Nitrostat] 0.4 mg SL Q5M PRN 09/16/15 [History] Ranolazine [Ranexa] 500 mg PO BID 09/16/15 [History] Chloraseptic [place] [Chloraseptic] 1 spray MM Q1H PRN 02/26/17 [History] Cholecalciferol (Vitamin D3) [Vitamin D3] 1,000 unit PO DAILY 02/26/17 [History] LORazepam [Ativan] 0.5 mg PO HS 02/26/17 [History] Magnesium Hydroxide [Milk of Magnesia] 30 ml PO DAILY PRN 02/26/17 [History] Metoprolol Succinate 25 mg PO DAILY 02/26/17 [History] Tramadol HCl [Ultram] 50 mg PO Q6H PRN 02/26/17 [History] Acetaminophen [Non-Aspirin] 650 mg PO Q6H PRN 03/13/17 [History] Calcium Carbonate [Calcium] 600 mg PO DAILY 04/10/17 [History] Docusate [Colace] 100 mg PO BID 04/10/17 [History] Donepezil HCl [Aricept] 5 mg PO HS 04/10/17 [History] Potassium Chloride [K-Tab ER] 20 meq PO BID 04/10/17 [History] Allergies/Adverse Reactions: 3 Allergy/AdvReac Type Severity Reaction Status Date / Time aspirin [ASA] Allergy Swelling Verified 03/13/17 15:48 of Lip/Tongue/Throat codeine Allergy Anaphylaxis Verified 03/13/17 15:48 iodine Allergy Anaphylaxis Verified 03/13/17 15:48 Procedures/tests Complete & Pending: Procedures Performed prior 72 hours Category Date Time Status EV echocardiogram Routine Y 04/11/17 01:54 Completed Date of admission: 04/11/17 01:37 Primary care physician: Jerrell Mandel MD Consults: 04/11/17 01:41 Consult to Oncology Hematology [CONS] Routine Consulting Provider: Abdelrahman Arroyo I Reason for Consult: Thrombocytopenia/ER has already discussed with Dr. Askew Time Notified: 01:43 Call Completed: Yes 04/11/17 11:36 Consult to Speech Therapy [CONS] Routine Comment: Evaluate, develop and implement POC Reason for Consult: Possible need for diet change Time Notified: 11:40 Call Completed: Yes Discharging clinician: Mariano Ayon Anticipated date of discharge: 04/13/17 - Patient Status Disposition: Hospice - Medical Facility Condition: Fair Overall status at discharge: patient is not back to baseline - Discharge Instructions Follow Up With: Jerrell Mandel MD [Primary Care Provider] - - Diet and Activity Activity: as per physical therapy Diet: other ([place] thickened Diet, pureed diet) Hospital course: Ms. Caro is a 81 year old female admitted for thrombocytopenia found in the fdc. Patient is demented and her son is her guardian. Patient was treated with platelet transfusion. 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 However, patient's family would like to pursue hospice service, they do not want any more blood drawn, IV fluid, or steroid. We will discharge patient to hospice today. I saw and examined the patient today. She is weak and sleepy. Vitals are stable. No signs of bleeding. Lab shows some dehydration, as family does not want IV fluid, will encourage patient to drink water. Patient will discharge to hospice today. [facility] [facility] service has evaluated patient and accepted patient. - Time Spent with Patient Total time spent providing and/or coordinating discharge services: 25 minute Less than 30 minutes - Constitutional Vitals: Temp Pulse Resp BP Pulse Ox 98.3 F 110 17 143/75 94 04/13/17 11:00 04/13/17 11:00 04/13/17 11:00 04/13/17 11:00 04/13/17 11:00 General appearance: Present: cachectic, A&O X 0, no acute distress - Head Head exam: Present: atraumatic, normocephalic - Eye Eye exam: Present: PERRL, conjuntiva pink, sclera anicteric Pupils: Present: PERRL - Neck Neck exam general surgery: Present: supple, trachea midline. Absent: lymphadenopathy - Respiratory Respiratory exam: Present: CTAB. Absent: accessory muscle use, rales, rhonchi, wheezes - Cardiovascular Cardiovascular exam: Present: RRR, +S1, +S2. Absent: diastolic murmur, gallop, rubs, systolic murmur - GI/Abdominal GI/Abdominal exam: Present: normal bowel sounds, soft, no peritoneal signs. Absent: distended, tenderness - Extremities Exam Extremities exam: Present: warm, radial pulses palpable and symmetrical. Absent : calf tenderness, cyanotic, pedal edema - Neurological Exam Neurological exam: Present: CN II-XII intact, oriented X3, no focal deficits. Absent: pronater drift, facial droop, speech deficit - Skin Skin exam: Present: dry, intact - VTE Documentation of Mechanical Device: Graduated compression elastic hosiery
--- NOTE | 2017-04-13 14:03 | Physician Discharge Referral ---
Home Health/Hosp Referral Info Transfer to: Hospice Provider in Charge Post Discharge: [facility] - Diagnosis (1) Physical deconditioning Status: Acute (2) DVT prophylaxis Status: Acute (3) Thrombocytopenia Status: Acute (4) Elevated troponin Status: Acute (5) Hypokalemia Status: Acute (6) Goals of care, counseling/discussion Status: Acute (7) Breast cancer metastasized to bone Status: Acute - Respiratory Orders Smoking Cessation: Smoking cessation has been advised. For more information, call the [place] Tobacco Quit Line at 0-802-OIES-NOW. - Diet/Nutrition Diet/Nutrition Orders: Pureed ([place] thickened Diet, pureed diet) - Transfer Medications Home Medications: Atorvastatin [Lipitor] 40 mg PO HS 09/16/15 [History] Clopidogrel [Plavix] 75 mg PO DAILY 09/16/15 [History] Duloxetine HCl [Cymbalta] 60 mg PO DAILY 09/16/15 [History] Isosorbide MONOnitrate (24 HR) [Imdur] 30 mg PO DAILY 09/16/15 [History] Nitroglycerin [Nitrostat] 0.4 mg SL Q5M PRN 09/16/15 [History] Ranolazine [Ranexa] 500 mg PO BID 09/16/15 [History] Chloraseptic [place] [Chloraseptic] 1 spray MM Q1H PRN 02/26/17 [History] Cholecalciferol (Vitamin D3) [Vitamin D3] 1,000 unit PO DAILY 02/26/17 [History] LORazepam [Ativan] 0.5 mg PO HS 02/26/17 [History] Magnesium Hydroxide [Milk of Magnesia] 30 ml PO DAILY PRN 02/26/17 [History] Metoprolol Succinate 25 mg PO DAILY 02/26/17 [History] Tramadol HCl [Ultram] 50 mg PO Q6H PRN 02/26/17 [History] Acetaminophen [Non-Aspirin] 650 mg PO Q6H PRN 03/13/17 [History] Calcium Carbonate [Calcium] 600 mg PO DAILY 04/10/17 [History] Docusate [Colace] 100 mg PO BID 04/10/17 [History] Donepezil HCl [Aricept] 5 mg PO HS 04/10/17 [History] Potassium Chloride [K-Tab ER] 20 meq PO BID 04/10/17 [History] Allergies/Adverse Reactions: 3 Allergy/AdvReac Type Severity Reaction Status Date / Time aspirin [ASA] Allergy Swelling Verified 03/13/17 15:48 of Lip/Tongue/Throat codeine Allergy Anaphylaxis Verified 03/13/17 15:48 iodine Allergy Anaphylaxis Verified 03/13/17 15:48 Certification: Further, I certify that my clinical findings support that this patient is homebound (i.e. absences from home require considerable and taxing effort and are for medical reasons or rastafari services or infrequently or short duration when for other reasons) because: Homebound Reason: Patient requires assistance of a person or device to safely leave home Attestation: My signature below is to certify that this patient is under my care and that I, or nurse practitioner, or a physician's certified anesthesiologist assistant working with me, has a face-to -face encounter with this patient.
== END 2017-04-13 16:28 | disposition hospice, inpatient (51) | DRG 813 ==
LOC: EMEROO 15:27 → 3ANU 15:27
PROVIDERS: ADMIT Hospitalist; ATTEND Internal Medicine